=== PATIENT | male | born 1965 | race African-American/Black ===

== ENCOUNTER 2017-12-27 03:54 | Emergency (ER) | payer OTHER ==
[~2017-12-27] VITALS: Ht 177.8 cm; Wt 93.0 kg
--- NOTE | 2017-12-27 04:00 | NUR ---
TO BED 1 A 52 YO MALE PATIENT BIBRA 39 C/O SOB X 48 HRS. HX ASTHMA. PER RA PT 02 80% AT SENIOR CARE, 97% 02 2LPM VIA NC. PATIENT IS AAOX3, NAD NOTED. VSS. SKIN WARM AND DRY. PLACED PATIENT ON CARDIAC AND VS MONITORING. COMFORT MEASURE RENDERED.
--- NOTE | 2017-12-27 04:33 | NUR ---
xr at bedside.
[2017-12-27 04:41] LABS: ABG BASE EXCESS -0.2 mmol/L; ABG OXYGEN SATURATION 91.2 % (92.0-98.5); ABG PO2 61.9 mmHg (75.0-100.0); COHb 0.7 % (0.5-1.5); MetHb 0.4 % (0.0-1.5); O2Hb 90.2 % (94.0-97.0); SITE, ABG Left Radial
[2017-12-27] MEDS ORDERED: ALBUTEROL FS 2.5 MG/0.5 ML VIAL.NEB NEB ONE (05:00)
[2017-12-27] MEDS ORDERED: IPRATROPIUM NEB FS 0.5 MG/2.5 ML AMPUL.NEB NEB ONE ×2 (05:00→08:30)
[2017-12-27] MEDS ORDERED: ALBUTEROL FS 2.5 MG/3 ML VIAL.NEB ONE ×2 (05:25→08:33)
[2017-12-27] MEDS ORDERED: IPRATROPIUM NEB FS 0.5 MG/2.5 ML AMPUL.NEB ONE ×2 (05:25→08:33)
--- NOTE | 2017-12-27 05:33 | NUR ---
ONGOING BREATHING TREATMENT.
[2017-12-27 06:21] LABS: BASOPHILS % (AUTO) 0.4 % (0.0-2.0); EOSINOPHILS # (AUTO) 0.1 /CMM (0.0-0.7); EOSINOPHILS % (AUTO) 1.4 % (0.0-6.0); HEMATOCRIT 52 % (39-51); HEMOGLOBIN 17.4 g/dL (13.5-17.5); LYMPHOCYTES # (AUTO) 1.4 /CMM (0.8-4.8); LYMPHOCYTES % (AUTO) 14.3 % (20.0-44.0); MEAN CORPUSCULAR HEMOGLOBIN 31 PG (26.0-33.0); MEAN CORPUSCULAR HGB CONC 34 g/dl (31.0-36.0); MEAN CORPUSCULAR VOLUME 92 fL (80-96); MONOCYTES # (AUTO) 0.6 /CMM (0.1-1.30); MONOCYTES % (AUTO) 5.9 % (2.0-12.0); NEUTROPHILS # (AUTO) 7.9 /CMM (1.8-8.9); PLATELET COUNT (AUTO) 169 /CMM (150-450); RDW COEFFICIENT OF VARIATION 15.5 (11.5-15.0); RED BLOOD CELL COUNT(AUTO) 5.58 MIL/uL (4.5-6.0); WHITE BLOOD COUNT (AUTO) 10.1 K/uL (4.3-11.0)
[2017-12-27 06:32] LABS: CALCIUM, SERUM 9.5 mg/dL (8.5-10.1); CREATININE 1.7 mg/dL (0.6-1.3); POTASSIUM 4.2 mmol/L (3.5-5.1)
[2017-12-27 06:35] LABS: INR 1.15 (0.87-1.13)
[2017-12-27 06:41] LABS: TROPONIN I 0.034 ng/mL (0.00-0.056)
[2017-12-27 06:46] LABS: ALBUMIN 3.6 g/dL (3.4-5.0); BILIRUBIN,DIRECT 0.8 mg/dL (0.0-0.2); TOTAL PROTEIN, SERUM 7.9 g/dL (6.4-8.2)
--- NOTE | 2017-12-27 07:15 | NUR ---
CALLED RADIOLOGY TO TAKE PT TO CT
[2017-12-27] MEDS ORDERED: IOHEXOL-350 100 ML VIAL IV ONE (07:19)
[2017-12-27] MEDS ORDERED: CT SWABBABLE VALVE TRANS SET 1 EA INFUS.SET MC ONE (07:19)
[2017-12-27] MEDS ORDERED: IV NS 0.9% 500 ML IV ONE (07:20)
--- NOTE | 2017-12-27 07:53 | NUR ---
PATIENT WAS TAKEN TO CT FOR CT ANGIOGRAM
[2017-12-27] MEDS ORDERED: ALBUTEROL FS 2.5 MG/3 ML VIAL.NEB CONTNEB ONE (08:30)
--- NOTE | 2017-12-27 08:31 | NUR ---
RT AWARE OF BREATHING TREATMENT
--- NOTE | 2017-12-27 08:35 | NUR ---
BREATHING TREATMENT ONGOING, PATIENT WAS PLACED ON ROOM AIR AND WAS SATING 93-94%. OTHER VSS.
[2017-12-27 09:08] VITALS: BP 132/62
--- NOTE | 2017-12-27 09:12 | NUR ---
Patient discharged UNDER CUSTODY in stable condition. Written and verbal after care instructions given. Patient verbalizes understanding of instruction.
== END 2017-12-27 09:22 ==
LOC: ER 03:57
DX: J96.01 Acute respiratory failure with hypoxia (principal); J45.909 Unspecified asthma, uncomplicated; I10 Essential (primary) hypertension
CPT/HCPCS: 36415; 36600 ×2; 71045; 71275; 80048; 80076; 82803; 83880; 84484; 85025; 85378; 85730; 87081; 93005; 94640 ×2; 99285; A4606; J7040; Q9967; Z7610

== ENCOUNTER 2019-08-10 20:34 | Emergency (ER) | payer OTHER ==
[~2019-08-10] VITALS: Ht 177.8 cm; Wt 88.5 kg
[2019-08-10 21:17] LABS: BASOPHILS # (AUTO) 0.1 /CMM (0.0-0.2); BASOPHILS % (AUTO) 0.8 % (0.0-2.0); EOSINOPHILS % (AUTO) 1.1 % (0.0-6.0); HEMATOCRIT 50 % (39-51); HEMOGLOBIN 16.8 g/dL (13.5-17.5); LYMPHOCYTES # (AUTO) 1.4 /CMM (0.8-4.8); LYMPHOCYTES % (AUTO) 14.9 % (20.0-44.0); MEAN CORPUSCULAR HGB CONC 33 g/dl (31.0-36.0); MEAN CORPUSCULAR VOLUME 92 fL (80-96); MONOCYTES # (AUTO) 0.9 /CMM (0.1-1.30); MONOCYTES % (AUTO) 9.6 % (2.0-12.0); NEUTROPHILS # (AUTO) 6.7 /CMM (1.8-8.9); NEUTROPHILS % (AUTO) 73.6 % (43.0-81.0); PLATELET COUNT (AUTO) 188 /CMM (150-450); RED BLOOD CELL COUNT(AUTO) 5.45 MIL/uL (4.5-6.0); WHITE BLOOD COUNT (AUTO) 9.1 K/uL (4.3-11.0)
[2019-08-10] MEDS ORDERED: diphenhydrAMINE HCL 50 MG/ML VIAL ONE (21:20)
[2019-08-10 21:27] LABS: CALCIUM, SERUM 8.6 mg/dL (8.5-10.1); CARBON DIOXIDE 20 mmol/L (21-32); CHLORIDE 105 mmol/L (98-107); CREATININE 1.9 mg/dL (0.6-1.3); GLUCOSE 98 mg/dL (74-106); POTASSIUM 4.4 mmol/L (3.5-5.1); SODIUM SERUM 139 mmol/L (136-145); UREA NITROGEN, BLOOD 30 mg/dL (7-18)
[2019-08-10] MEDS ORDERED: diphenhydrAMINE HCL 50 MG/ML VIAL IV ONE (21:30)
--- NOTE | 2019-08-10 21:37 | NUR ---
BIBSELF. TO ER BED 9. AAO4. BREATHING EVEN AND UNLABORED. AMBULATORY. C/O BODY CRAMPING, SOB - FEELING OF AIRWAY CLOSING STARTING THIS EVENING. PT REPORTS THAT HE FEELS SOB IF HIS AIRAWY IS CLOSING. PT REPORTS THAT HE HAVE DX OF PULM HTN. PT REPORTS THAT HIS BODY IS CRAMPING /. MD WAS AT BEDSIDE FOR EVAL. ORDERS RECEIVED, NOTD AND CARRIED OUT. IV LINE OBTIANED ON RA HAND 20G. BLOOD DRAWN AND GIVEN TO PATIENT FINANCIAL SERVICES SPECIALIST TA BEDSIDE. EKG DONE BY EMT. XRAY AT BEDSIDE DONE. PT PLACED ON O2 VIA NC @ 2LPM, SATTING AT 91%. PT VERBALIZES RELIEF AFTER O2 PLACEMENT, O2 SAT NOTED AT 94%. PT ON MONITOR.
[2019-08-10] MEDS ORDERED: ALBUTEROL FS 2.5 MG/0.5 ML VIAL.NEB NEB ONE (22:00)
[2019-08-10] MEDS ORDERED: IPRATROPIUM NEB FS 0.5 MG/2.5 ML AMPUL.NEB NEB ONE (22:00)
[2019-08-10] MEDS ORDERED: IPRATROPIUM NEB FS 0.5 MG/2.5 ML AMPUL.NEB ONE (22:24)
[2019-08-10] MEDS ORDERED: ALBUTEROL FS 2.5 MG/0.5 ML VIAL.NEB ONE (22:24)
--- NOTE | 2019-08-10 23:15 | NUR ---
PT STILL NOTED WITH SOB. SATTING @ 90-91% ON RA. PALCED ON 4LMP VIA NC-SATTING AT 94-95%. AWARE, ORDERS FOR ADDITIONAL LABS RECEIVED
[2019-08-10] MEDS ORDERED: FUROSEMIDE 40 MG/4 ML VIAL ONE (23:54)
[2019-08-11] MEDS ORDERED: FUROSEMIDE 40 MG/4 ML VIAL IV ONE
--- NOTE | 2019-08-11 00:01 | NUR ---
RT AT BEDSIDE FOR ABG
[2019-08-11 00:11] LABS: ABG BASE EXCESS -2.5 mmol/L; ABG OXYGEN SATURATION 93.6 % (92.0-98.5); ABG PCO2 24.4 mmHg (35.0-45.0); ABG PH 7.496 (7.350-7.450); ABG PO2 67.4 mmHg (75.0-100.0); COHb 0.2 % (0.5-1.5); MetHb 0.2 % (0.0-1.5); O2Hb 93.2 % (94.0-97.0); SITE, ABG Left Radial; VENT MODE, BG Nasal Cannula
--- NOTE | 2019-08-11 00:22 | NUR ---
PT ACCEPTED TO [facility] BY DR GALLEGOS, ROOM 124-A. # FOR REPORT [phone]. TRACKING# [id number]
[2019-08-11] MEDS ORDERED: MORPHINE SULFATE INJ 4 MG/ML DISP.SYRIN ONE (01:04)
--- NOTE | 2019-08-11 01:10 | NUR ---
PT COMPLAINED OF BILAT CALF CRAMPING, 08/20. MD NOTIFIED. ORDER RECEIVED TO GIVE MORPHINE 4MG IV. ORDERS NOTED AMD CARRIED OUT
--- NOTE | 2019-08-11 01:18 | NUR ---
URINE OUTPUT 1125ML
--- NOTE | 2019-08-11 01:19 | NUR ---
REPORT GIVEN TO BROOK BHANDARI FOR JUDY AT [facility]. GOING TO RM 124-A
--- NOTE | 2019-08-11 01:19 | NUR ---
AMBULANCE ETA 2:15AM
[2019-08-11] MEDS ORDERED: MORPHINE SULFATE INJ 10 MG/ML DISP.SYRIN IV ONE (01:30)
--- NOTE | 2019-08-11 02:09 | NUR ---
[facility] AT BEDSIDE FOR PT TRANSPORT TO [facility]. PT IS STABLE FOR TRANSPORT. NAD NOTED. REPORT GIVEN
[2019-08-11 02:14] VITALS: BP 149/103
--- NOTE | 2019-08-11 02:18 | NUR ---
ADDITIONAL URINE OUTPUT: 800ML (ON TOP OF EARLIER RECORDED)
== END 2019-08-11 02:19 | disposition short-term general hospital (02) ==
LOC: ER 20:36
DX: R06.02 Shortness of breath (principal); R60.0 Localized edema; I10 Essential (primary) hypertension; J45.909 Unspecified asthma, uncomplicated; F15.10 Other stimulant abuse, uncomplicated; Z60.2 Problems related to living alone
CPT/HCPCS: 36415; 36600; 71045; 80048; 83880; 84484; 85025; 87081; 93005; 94640; 96374; 96375; 99285; J1200; J1940; J2270

== ENCOUNTER 2019-08-23 00:21 | Inpatient (IN) | payer OTHER ==
[~2019-08-23] VITALS: Ht 177.8 cm; Wt 87.1 kg
--- NOTE | 2019-08-23 00:25 | NUR ---
"BIB EMS C/O SOB X2 WEEKS. "I'M HOMELESS, I FEEL WEAK AND WHEN IT'S COLD OUTSIDE IT GET'S WORSE"." PT AAOX4, PT ON MONITOR, PT TO BED 12, NAD NOTED, PENDING MD BROWNE
[2019-08-23 00:53] LABS: BASOPHILS # (AUTO) 0.1 /CMM (0.0-0.2); EOSINOPHILS % (AUTO) 2.3 % (0.0-6.0); HEMATOCRIT 45 % (39-51); HEMOGLOBIN 15.1 g/dL (13.5-17.5); LYMPHOCYTES # (AUTO) 1.2 /CMM (0.8-4.8); LYMPHOCYTES % (AUTO) 18.3 % (20.0-44.0); MEAN CORPUSCULAR HGB CONC 34 g/dl (31.0-36.0); MEAN CORPUSCULAR VOLUME 92 fL (80-96); MONOCYTES # (AUTO) 0.7 /CMM (0.1-1.30); MONOCYTES % (AUTO) 10.3 % (2.0-12.0); NEUTROPHILS # (AUTO) 4.5 /CMM (1.8-8.9); NEUTROPHILS % (AUTO) 68.1 % (43.0-81.0); PLATELET COUNT (AUTO) 189 /CMM (150-450); RED BLOOD CELL COUNT(AUTO) 4.87 MIL/uL (4.5-6.0); WHITE BLOOD COUNT (AUTO) 6.6 K/uL (4.3-11.0)
[2019-08-23 01:01] LABS: CALCIUM, SERUM 8.5 mg/dL (8.5-10.1); CARBON DIOXIDE 19 mmol/L (21-32); CHLORIDE 107 mmol/L (98-107); CREATININE 1.5 mg/dL (0.6-1.3); GLUCOSE 93 mg/dL (74-106); POTASSIUM 4.2 mmol/L (3.5-5.1); SODIUM SERUM 138 mmol/L (136-145); UREA NITROGEN, BLOOD 24 mg/dL (7-18)
[2019-08-23 01:14] LABS: B-TYPE NATRIURETIC PEPTIDE 1868 PG/ML (0-125)
--- NOTE | 2019-08-23 01:32 | NUR ---
TECH AT BESIDE FOR XRAY
[2019-08-23] MEDS ORDERED: FUROSEMIDE 40 MG/4 ML VIAL ONE (02:56)
[2019-08-23] MEDS ORDERED: FUROSEMIDE 40 MG/4 ML VIAL IV ONE (03:00)
[2019-08-23] MEDS ORDERED: ACETAMINOPHEN 325 MG TABLET ONE (03:26)
[2019-08-23] MEDS ORDERED: ACETAMINOPHEN 325 MG TABLET PO ONE (03:30)
[2019-08-23] MEDS ORDERED: FURO-144 PO (04:36)
[2019-08-23] MEDS ORDERED: AMBR10TA5 PO (04:36)
--- NOTE | 2019-08-23 04:55 | NUR ---
TRANSPORTED PT TO FLOOR VIA [facility]S PROTOCOL
[2019-08-23 05:00] VITALS: BP 99/94
[2019-08-23] MEDS ORDERED: ONDANSETRON HCL/PF 4 MG/2 ML VIAL IVP PRN (05:30)
[2019-08-23] MEDS ORDERED: Z GUARD REMEDY 2 OZ OINT TP PRN (05:30)
[2019-08-23] MEDS ORDERED: ACETAMINOPHEN 325 MG TABLET PO PRN (05:30)
[2019-08-23] MEDS ORDERED: BUMETANIDE INJ 6 MG in IV NS 0.9% 36 ML IV ONE (05:30)
--- NOTE | 2019-08-23 06:38 | NUR ---
MS/RN AT 0500 RECEIVED PATIENT FROM [facility] VIA [facility], PATIENT WAS AWAKE, ALERT, ORIENTED, COMFORTABLE, NO C/O PAIN, NO DISTRESS NOTED, ADMISSION DONE PER PROTOCOL, PHOTO ON ABDOMINAL FOLD WAS TAKEN, PATIENT REFUSED FURTHER SKIN ASSESSMENT, PLAN OF CARE DISCUSSED, VERBALIZED UNDERSTANDING AND AGREEMENT. WILL MONITOR.
[2019-08-23 06:42] VITALS: BP 98/74
[2019-08-23] MEDS ORDERED: SPIR25TA6 PO (07:10)
--- NOTE | 2019-08-23 07:30 | NUR ---
RN MS NOTES PT IN BED, ASLEEP, EASY TO AROUSE, ALERT AND ORIENTED, NO COMPLAINT OF PAIN, NOT IN DISTRESS, CALL LIGHT WITHIN REACH, NEEDS ATTENDED, IV SITE AT RIGHT HAND INTACT AND PATENT.
[2019-08-23 08:00] VITALS: BP 110/70
[2019-08-23] MEDS: ASPIRIN EC 81 MG TABLET.DR PO SCH (08:51)
[2019-08-23] MEDS: ENOXAPARIN SODIUM 40 MG/0.4 ML DISP.SYRIN SQ SCH (08:58)
--- NOTE | 2019-08-23 09:26 | NUR ---
SPINE SUPERVISOR NOTES PT SEEN AND EXAMINED BY DR. GERMAN, PLAN OF CARE DISCUSSED WITH PT, VERBALIZED UNDERSTANDING.
[2019-08-23 10:05] LABS: ALBUMIN 3.3 g/dL (3.4-5.0); BILIRUBIN,TOTAL 1.9 mg/dL (0.2-1.0); CALCIUM, SERUM 8.4 mg/dL (8.5-10.1); CREATININE 1.6 mg/dL (0.6-1.3); MAGNESIUM 1.9 mg/dL (1.8-2.4); PHOSPHORUS 3.9 mg/dL (2.5-4.9); POTASSIUM 3.7 mmol/L (3.5-5.1)
[2019-08-23 10:28] LABS: THYROID STIMULATING HORMONE 2.441 uIU/mL (0.358-3.74)
--- NOTE | 2019-08-23 11:04 | NUR ---
RN MS NOTES PT COMPLAINING OF BOTH THIGH CRAMPS, ASSISTED PT TO BED, APPLIED WARM COMPRESSES TO BOTH LEGS, PROVIDED WITH WARM BLANKETS, DR. GERMAN MADE AWARE, NO NEW ORDER GIVEN, PT STATED HE FEELS BETTER, WILL CONTINUE TO MONITOR.
[2019-08-23 16:00] VITALS: BP 120/81
[2019-08-23] MEDS ORDERED: HYDROCODONE/APAP 5/325MG 1 EACH TABLET PO ONE (16:30)
[2019-08-23] MEDS ORDERED: HYDROCODONE/APAP 5/325MG 1 EACH TABLET PO PRN (18:00)
--- NOTE | 2019-08-23 18:12 | NUR ---
RN MS NOTES PT IN BED, RESTING, EARLIER COMPLAINED OF SEVERE BOTH LEGS CRAMPS, WARM COMPRESSES AND WARM BLANKETS PROVIDED, DR. GERMAN INFORMED, ORDERS GIVEN, NOTED AND CARRIED OUT, PT VERBALIZED RELIEF, CALL LIGHT WITHIN REACH, ALL NEEDS ATTENDED.
--- NOTE | 2019-08-23 19:33 | NUR ---
MS RN NOTES RECEIVED ON BED EATING HIS DINNER FOOD,A/O X4,SALINE LOCK RIGHT HAND INTACT AND PATENT.ABLE TO AMBULATE.CALL LIGHT IN REACH,HOMELESS,NEEDS ANTICIPATED.
[2019-08-23 20:00] VITALS: BP 115/70
[2019-08-23 20:00] LABS: APPEARANCE,URINE Clear (CLEAR); BILIRUBIN,URINE Negative (NEGATIVE); BLOOD, URINE Trace-intact Ery/uL (NEGATIVE); COLOR,URINE Yellow (YELLOW); KETONES,URINE Negative (NEGATIVE); LEUKOCYTE ESTERASE ,URINE Negative (NEGATIVE); NITRITE, URINE Negative (NEGATIVE); PH,URINE 5.5 (5.0-8.0); PROTEIN,URINE Negative (NEGATIVE); UGLUCOSE Negative (NEGATIVE); UROBILINOGEN,URINE 0.2 EU/dL (0.2)
[2019-08-23 20:01] LABS: BACTERIA,URINE None seen /HPF (None Seen); RBC,URINE 0-2 /HPF (0-2); SQUAMOUS EPITHELIAL CELL,UR Few /HPF (None Seen); WBC,URINE 0-2 /HPF (0-3)
[2019-08-23 20:32] LABS: CREATININE, URINE < 13.0 MG/DL (30.0-125.0)
[2019-08-23 23:12] LABS: EOSINOPHIL,URINE None Seen
--- NOTE | 2019-08-24 06:09 | NUR ---
MS RN NOTES FAIRLY RESTED,NO EPISODE OF SOB.AMBULATORY.CALL LIGHT IN REACH,NEEDS ATTENDED.WILL ENDORSE TO DAY NURSE FOR JUDY.
[2019-08-24 07:22] LABS: BASOPHILS # (AUTO) 0.1 /CMM (0.0-0.2); BASOPHILS % (AUTO) 0.9 % (0.0-2.0); EOSINOPHILS % (AUTO) 3.2 % (0.0-6.0); HEMATOCRIT 50 % (39-51); HEMOGLOBIN 16.3 g/dL (13.5-17.5); LYMPHOCYTES # (AUTO) 1.4 /CMM (0.8-4.8); LYMPHOCYTES % (AUTO) 24.2 % (20.0-44.0); MEAN CORPUSCULAR HGB CONC 33 g/dl (31.0-36.0); MEAN CORPUSCULAR VOLUME 92 fL (80-96); MONOCYTES # (AUTO) 0.6 /CMM (0.1-1.30); MONOCYTES % (AUTO) 10.4 % (2.0-12.0); NEUTROPHILS # (AUTO) 3.5 /CMM (1.8-8.9); NEUTROPHILS % (AUTO) 61.3 % (43.0-81.0); PLATELET COUNT (AUTO) 203 /CMM (150-450); RED BLOOD CELL COUNT(AUTO) 5.41 MIL/uL (4.5-6.0); WHITE BLOOD COUNT (AUTO) 5.7 K/uL (4.3-11.0)
[2019-08-24 07:35] LABS: CALCIUM, SERUM 8.4 mg/dL (8.5-10.1); CREATININE 1.6 mg/dL (0.6-1.3); MAGNESIUM 1.9 mg/dL (1.8-2.4); PHOSPHORUS 4.2 mg/dL (2.5-4.9); POTASSIUM 3.6 mmol/L (3.5-5.1)
[2019-08-24 08:00] VITALS: BP 107/69
--- NOTE | 2019-08-24 08:07 | NUR ---
RN OPENING NOTES PT RESTING IN BED. NO APPARENT S/S OF PAIN, DISTRESS OR SOB AT THIS TIME. PT HAS RIGHT HAND #18 IV INTACT AND PATENT. SAFETY PRECAUTIONS IN PLACE, BED IN LOWEST LOCKED POSITION, X2 SIDE RAILS UP AND CALL LIGHT WITHIN REACH. WILL CONTINUE TO MONITOR.
[2019-08-24] MEDS: ASPIRIN EC 81 MG TABLET.DR PO SCH (08:45)
[2019-08-24] MEDS: ENOXAPARIN SODIUM 40 MG/0.4 ML DISP.SYRIN SQ SCH (08:46)
--- NOTE | 2019-08-24 11:11 | NUR ---
Social service consult requested by Dr. Irizarry for possible homelessness. Pt. is a 53 year old male who was admitted to [facility] for CHF. SW met with the pt. bedside. Pt. is alert and oriented x 4. Pt. was sitting upright on his bed and writing in a notebook when SW went to assess the pt. Pt. is well groomed, cooperative and very pleasant. Pt. states, he resides [place] his best friend [place] [address] [place] [address], [place] [address]. Pt's emergency contact is his mother Lupe Sanchez . Pt. denies any alcohol, drugs and cigarette use. Pt. will return back to the aforementioned address upon discharge. No social service needs are requested at this time. SW is available, if needed.
[2019-08-24 16:00] VITALS: BP 120/75
--- NOTE | 2019-08-24 19:30 | NUR ---
MS RN OPENING NOTE RECEIVED PATIENT IN BED. A/O X4. TOLERATING ROOM AIR. RESPIRATIONS ARE EVEN AND UNLABORED. NO SOB NOTED. DENIES PAIN AT THIS TIME. IV ACCESS IN RIGHT HAND #18 PATENT AND SALINE LOCKED. BED IS LOW AND LOCKED, SIDE RAILS UP X2, HOB ELEVATED 45 DEGREES. CALL LIGHT WITHIN REACH. WILL CONTINUE TO MONITOR.
--- NOTE | 2019-08-24 19:35 | NUR ---
RN CLOSING NOTES PT RESTING IN BED. NO APPARENT S/S OF PAIN, DISTRESS OR SOB DURING. PT HAS RIGHT HAND #18 IV INTACT AND PATENT. SAFETY PRECAUTIONS IN PLACE, BED IN LOWEST LOCKED POSITION, X2 SIDE RAILS UP AND CALL LIGHT WITHIN REACH. WILL ENDORSE TO ASSEMBLER WIRE MESH GATE NURSE FOR CONTINUITY OF CARE.
[2019-08-24 20:00] VITALS: BP 124/79
--- NOTE | 2019-08-25 06:45 | NUR ---
MS RN CLOSING NOTE PATIENT IN BED. A/O X4. REMAINS TOLERATING ROOM AIR. RESPIRATIONS ARE EVEN AND UNLABORED. NO SOB NOTED THROUGHOUT SHIFT. NO C/O PAIN. IV ACCESS REMIANS IN RIGHT HAND #18 PATENT AND SALINE LOCKED. BED IS LOW AND LOCKED, SIDE RAILS UP X2, HOB ELEVATED 45 DEGREES. CALL LIGHT WITHIN REACH. WILL ENDORSE TO NEXT SHIFT FOR JUDY.
[2019-08-25 07:11] LABS: BASOPHILS % (AUTO) 0.8 % (0.0-2.0); EOSINOPHILS % (AUTO) 3.4 % (0.0-6.0); HEMATOCRIT 49 % (39-51); HEMOGLOBIN 16.1 g/dL (13.5-17.5); LYMPHOCYTES # (AUTO) 1.4 /CMM (0.8-4.8); LYMPHOCYTES % (AUTO) 26.4 % (20.0-44.0); MEAN CORPUSCULAR HGB CONC 33 g/dl (31.0-36.0); MEAN CORPUSCULAR VOLUME 92 fL (80-96); MONOCYTES # (AUTO) 0.6 /CMM (0.1-1.30); MONOCYTES % (AUTO) 12.2 % (2.0-12.0); NEUTROPHILS % (AUTO) 57.2 % (43.0-81.0); PLATELET COUNT (AUTO) 209 /CMM (150-450); RED BLOOD CELL COUNT(AUTO) 5.38 MIL/uL (4.5-6.0); WHITE BLOOD COUNT (AUTO) 5.3 K/uL (4.3-11.0)
[2019-08-25 07:21] LABS: CALCIUM, SERUM 8.6 mg/dL (8.5-10.1); CREATININE 1.4 mg/dL (0.6-1.3); POTASSIUM 4.1 mmol/L (3.5-5.1)
[2019-08-25 08:00] VITALS: BP 127/90
[2019-08-25] MEDS: ENOXAPARIN SODIUM 40 MG/0.4 ML DISP.SYRIN SQ SCH (08:33)
[2019-08-25] MEDS: ASPIRIN EC 81 MG TABLET.DR PO SCH (08:34)
--- NOTE | 2019-08-25 11:26 | NUR ---
WOUND CARE CONSULT: PT REFUSED SKIN ASSESSMENT AND STATED THAT HE SEES HIS OWN DOCTOR FOR ECZEMA. PT IS INDEPENDENT WITH BED MOBILITY AND CONTINENT WITH CURRENT EDWARD SCORE OF 21. WILL SEE PRN.
[2019-08-25 16:00] VITALS: BP 138/85
--- NOTE | 2019-08-25 18:22 | NUR ---
FRUIT GRADER OPERATOR NOTES PT STABLE AT DISCHARGE. ALL DISCHARGE PAPERWORK, DISCUSSED, SIGNED, COPIED, AND GIVEN TO THE PATIENT. ALL PATIENT BELONGINGS ACCOUNTED FOR. PT REFUSED PICTURES OF SKIN AT DISCHARGE. IV AND ID BAND REMOVED. PT ESCORTED OFF OF UNIT BY CAROL WILSON.
== END 2019-08-25 17:50 | disposition home or self-care (01) | DRG 207 ==
LOC: ER 00:25 → TELE 04:18 → MED 09:55
PROVIDERS: ADMIT Family Medicine; ATTEND Hospitalist
DX: I27.20 Pulmonary hypertension, unspecified (principal); N17.0 Acute kidney failure with tubular necrosis; I13.0 Hypertensive heart and chronic kidney disease with heart failure and stage 1 through stage 4 chronic kidney disease, or unspecified chronic kidney disease; I95.9 Hypotension, unspecified; I50.9 Heart failure, unspecified; N18.9 Chronic kidney disease, unspecified; Z59.0 Homelessness; J45.909 Unspecified asthma, uncomplicated; R07.9 Chest pain, unspecified
CPT/HCPCS: 36415; 71045-TC; 76770-TC; 80048-TC; 80053-TC; 80061-TC; 81000-TC; 82570-TC; 83735-TC; 83880; 84100-TC; 84439-TC; 84443-TC; 84484-TC; 85025-TC; 87081-TC; 93307-TC; A4216; G0378; J1650; J1940; J3490; J7050

== ENCOUNTER 2020-09-25 21:46 | Inpatient (IN) | payer OTHER ==
[~2020-09-25] VITALS: Ht 177.8 cm; Wt 90.7 kg
[~2020-09-25 21:46] MED LIST: AMBR10TA5 PO; FURO-144 PO; SPIR25TA6 PO
--- NOTE | 2020-09-25 21:48 | NUR ---
PT CAME TO THE ER C/O ER C/O SOB X 2 DAYS. WORSE TODAY. PT SATTING IN THE LOW 90'S ON RA. PT PLACED ON 5 LPM VIA N/C SATTING 96%. PT NOTED TACHYPNEIC. PT AAOX4, NO ACUTE DISTRESS NOTED. PT CONNECTED TO THE DIRECTOR OF HOME CARE HOSPICE AND POX.
--- NOTE | 2020-09-25 22:07 | NUR ---
TOOL AND DIE REPAIRER AT BEDSIDE FOR BLOOD DRAW
--- NOTE | 2020-09-25 22:14 | NUR ---
CALLED LAB FOR COVID SWAB
--- NOTE | 2020-09-25 22:23 | NUR ---
COVID SWAB SENT TO LAB
[2020-09-25 22:46] LABS: BASOPHILS % (AUTO) 0.6 % (0.0-2.0); HEMATOCRIT 53 % (39-51); HEMOGLOBIN 17.6 g/dL (13.5-17.5); LYMPHOCYTES # (AUTO) 1.7 /CMM (0.8-4.8); LYMPHOCYTES % (AUTO) 24.9 % (20.0-44.0); MEAN CORPUSCULAR HGB CONC 33 g/dl (31.0-36.0); MEAN CORPUSCULAR VOLUME 93 fL (80-96); MONOCYTES # (AUTO) 0.5 /CMM (0.1-1.30); MONOCYTES % (AUTO) 7.9 % (2.0-12.0); NEUTROPHILS # (AUTO) 4.4 /CMM (1.8-8.9); NEUTROPHILS % (AUTO) 64.6 % (43.0-81.0); PLATELET COUNT (AUTO) 174 /CMM (150-450); RED BLOOD CELL COUNT(AUTO) 5.75 MIL/uL (4.5-6.0); WHITE BLOOD COUNT (AUTO) 6.8 K/uL (4.3-11.0)
[2020-09-25 22:58] LABS: CALCIUM, SERUM 9.3 mg/dL (8.5-10.1); CARBON DIOXIDE 22 mmol/L (21-32); CHLORIDE 105 mmol/L (98-107); CREATININE 1.5 mg/dL (0.6-1.3); GLUCOSE 62 mg/dL (74-106); POTASSIUM 4.1 mmol/L (3.5-5.1); SODIUM SERUM 139 mmol/L (136-145); UREA NITROGEN, BLOOD 21 mg/dL (7-18)
[2020-09-25 23:10] LABS: ALANINE AMINOTRANSFERASE 91 U/L (12-78); ALBUMIN 4.1 g/dL (3.4-5.0); ALKALINE PHOSPHATASE 145 U/L (46-116); ASPARTATE AMINOTRANSFERASE 57 U/L (15-37); B-TYPE NATRIURETIC PEPTIDE 6749 PG/ML (0-125); BILIRUBIN,DIRECT 0.3 mg/dL (0.0-0.2); BILIRUBIN,TOTAL 1.2 mg/dL (0.2-1.0); TOTAL PROTEIN, SERUM 8.2 g/dL (6.4-8.2)
--- NOTE | 2020-09-25 23:17 | NUR ---
RT AT BEDSIDE FOR ABG DRAW
--- NOTE | 2020-09-25 23:50 | NUR ---
Pt refusing ABG due to pain. RN and ER MD aware.
[2020-09-26] MEDS ORDERED: ALBUTEROL FS 2.5 MG/3 ML VIAL.NEB NEB ONE
[2020-09-26] MEDS ORDERED: FUROSEMIDE 40 MG/4 ML VIAL ONE
[2020-09-26 00:01] LABS: D-DIMER 1.05 mg/L(FEU (0.17-0.50)
[2020-09-26] MEDS ORDERED: ALBUTEROL FS 2.5 MG/3 ML VIAL.NEB ONE (00:03)
--- NOTE | 2020-09-26 00:37 | NUR ---
REPORT GIVEN TO BROOK WATTERS FOR JUDY
--- NOTE | 2020-09-26 01:07 | NUR ---
TELE 108
--- NOTE | 2020-09-26 01:09 | NUR ---
NURSE WILL CALL BACK FOR REPORT
[2020-09-26] MEDS ORDERED: ONDANSETRON HCL/PF 4 MG/2 ML VIAL IVP PRN (01:30)
[2020-09-26] MEDS ORDERED: ACETAMINOPHEN 325 MG TABLET PO PRN (01:30)
[2020-09-26] MEDS ORDERED: ZOLPIDEM TARTRATE 5 MG TABLET PO PRN (01:30)
[2020-09-26] MEDS ORDERED: hydrALAZINE HCL 25 MG TABLET PO SCH (01:30)
[2020-09-26] MEDS ORDERED: MAGNESIUM HYDROXIDE 30 ML UDC PO PRN (01:30)
[2020-09-26] MEDS ORDERED: Z GUARD REMEDY 2 OZ OINT TP PRN (01:30)
[2020-09-26] MEDS ORDERED: HYDROCODONE/APAP 5/325MG TABLET PO PRN (01:30)
[2020-09-26] MEDS ORDERED: MAG HYDROX/AL HYDROX/SIMETH 30 ML UDC PO PRN (01:30)
[2020-09-26 02:52] VITALS: BP 143/62
[2020-09-26 04:00] VITALS: BP 144/94
--- NOTE | 2020-09-26 07:00 | NUR ---
RN notes Admitted a 54 year old from ER via stretcher with admitting diagnosis of CHF exacerbation. In no apparent distress, on 10 lpm via regular mask with O2sat of 96 to 100%. Alert and oriented x 4, verbally able to communicate needs. No complaint of pain or discomfort. Vital signs wnl. Needs attended. Kept clean and dry. Will endorse to next shift for continuity of care.
[2020-09-26 08:00] VITALS: BP 133/78
[2020-09-26] MEDS ORDERED: AMBRISENTAN 10 MG PO SCH (09:00)
[2020-09-26] MEDS: SPIRONOLACTONE 25 MG TABLET PO SCH (09:30)
[2020-09-26] MEDS: FUROSEMIDE 40 MG TABLET PO SCH (09:30)
[2020-09-26] MEDS ORDERED: FUROSEMIDE 40 MG/4 ML VIAL IV ONE ×2 (11:00)
[2020-09-26 12:00] VITALS: BP 129/78
[2020-09-26 12:39] LABS: CREATININE, URINE 59.4 MG/DL (30.0-125.0); URINE TOTAL PROTEIN 34.9 mg/dL (0-11.9)
[2020-09-26 13:37] LABS: BILIRUBIN,URINE NEGATIVE (NEGATIVE); BLOOD, URINE TRACE Ery/uL (NEGATIVE); COLOR,URINE YELLOW (YELLOW); LEUKOCYTE ESTERASE ,URINE NEGATIVE (NEGATIVE); NITRITE, URINE NEGATIVE (NEGATIVE); PH,URINE 5.5 (5.0-8.0); PROTEIN,URINE TRACE mg/dl (NEGATIVE); UGLUCOSE NEGATIVE (NEGATIVE); UROBILINOGEN,URINE 0.2 EU/dL (0.2)
[2020-09-26 14:22] LABS: RBC,URINE 0-2 /HPF (0-2); WBC,URINE 0-2 /HPF (0-3)
[2020-09-26 14:23] LABS: BACTERIA,URINE Rare /HPF (None Seen); SQUAMOUS EPITHELIAL CELL,UR Rare /HPF (None Seen)
[2020-09-26 15:15] LABS: EOSINOPHIL,URINE None Seen
[2020-09-26 16:00] VITALS: BP 129/78
--- NOTE | 2020-09-26 17:38 | NUR ---
rn notes patient remains on 6 LPM mask, saturating in the low to mid 90's with this setting. a/o x4, denies pain at this time. negative for DVT at this time post duplex venous lower test. Patient to provide ambirsentan, medication for pulmonary hypertension. Fax sent to [facility] requesting for paperwork when patient was admitted there. Bed at the lowest setting, call light within reach, side rails up x2.
--- NOTE | 2020-09-26 19:20 | NUR ---
RN OPENING NOTE, PATIENT IN BED WATCHING FOOTBALL GAME, AWAKE A/O X4 , BREATHING EVEN AN UNLABORED, NO SOB OR ANY RESPIRATORY DISTRESS AT THIS TIME, DENIES ANY PAIN OR DISCOMFORT, ON NC AT 5LPM WITH SATURATION 92-95% AT THIS TIME, NSR IN TELE MONITOR WITH HR 60S AT THIS TIME, SIDE RAILS UP X2, ALL SAFETY MEASURES IMPLEMENTED, CALL LIGHT WITHIN REACH, WILL CONTINUE TO MONITOR CLOSELY.
[2020-09-26 20:00] VITALS: BP 133/94
[2020-09-27] VITALS: BP 136/89
[2020-09-27 04:00] VITALS: BP 154/95
[2020-09-27 06:00] LABS: BASOPHILS # (AUTO) 0.1 /CMM (0.0-0.2); BASOPHILS % (AUTO) 0.8 % (0.0-2.0); EOSINOPHILS % (AUTO) 2.3 % (0.0-6.0); HEMATOCRIT 52 % (39-51); HEMOGLOBIN 17.3 g/dL (13.5-17.5); LYMPHOCYTES # (AUTO) 1.4 /CMM (0.8-4.8); MEAN CORPUSCULAR HGB CONC 33 g/dl (31.0-36.0); MEAN CORPUSCULAR VOLUME 92 fL (80-96); MONOCYTES # (AUTO) 0.6 /CMM (0.1-1.30); MONOCYTES % (AUTO) 7.4 % (2.0-12.0); NEUTROPHILS # (AUTO) 5.6 /CMM (1.8-8.9); NEUTROPHILS % (AUTO) 71.5 % (43.0-81.0); PLATELET COUNT (AUTO) 173 /CMM (150-450); RED BLOOD CELL COUNT(AUTO) 5.66 MIL/uL (4.5-6.0); WHITE BLOOD COUNT (AUTO) 7.9 K/uL (4.3-11.0)
[2020-09-27 06:19] LABS: ALBUMIN 3.3 g/dL (3.4-5.0); BILIRUBIN,TOTAL 1.2 mg/dL (0.2-1.0); CALCIUM, SERUM 8.8 mg/dL (8.5-10.1); CREATININE 1.5 mg/dL (0.6-1.3); MAGNESIUM 2.1 mg/dL (1.8-2.4); PHOSPHORUS 4.5 mg/dL (2.5-4.9); POTASSIUM 3.9 mmol/L (3.5-5.1); TOTAL PROTEIN, SERUM 7.1 g/dL (6.4-8.2)
--- NOTE | 2020-09-27 06:45 | NUR ---
RN CLOSING NOTES, PATIENT IN BED SLEEPING AT THIS TIME, BREATHING EVEN AN UNLABORED, NO SOB OR ANY RESPIRATORY DISTRESS AT THIS TIME, ON NC AT 5LPM WITH SATURATION >94% THROUGHOUT THE NIGHT, CONTINUE NSR IN TELE MONITOR WITH HR 80S AT THIS TIME, SIDE RAILS UP X2, ALL SAFETY MEASURES IMPLEMENTED, CALL LIGHT WITHIN REACH, WILL ENDORSE CONTINUITY OF CARE TO ONCOMING NURSE.
--- NOTE | 2020-09-27 07:30 | NUR ---
RN OPENING NOTE TELE PT IN BED, AWAKE, A/Ox4 BREATHING RA SPO2 98%, NO SIGNS OF RESP DISTRESS OR SOB. PT DENIES ANY PAIN OR DISCOMFORT. PT IN NSR IN THE 70s. PT HAS A LT HAND G22 HEP LOCKED. PT ON STRICT I/O's AND FLUID RESTRICTION. SAFETY PRECAUTIONS IN PLACE- BED LOCKED AND IN LOWEST POSITION, CALL LIGHT WITHIN REACH, SR UP x2. WILL CONTINUE TO MONITOR.
[2020-09-27 08:00] VITALS: BP 140/99
[2020-09-27] MEDS: FUROSEMIDE 40 MG TABLET PO SCH (09:06)
[2020-09-27] MEDS: SPIRONOLACTONE 25 MG TABLET PO SCH (09:06)
[2020-09-27 11:35] LABS: ABG BASE EXCESS -2.9 mmol/L; ABG OXYGEN SATURATION 94.4 % (92.0-98.5); ABG PCO2 31.1 mmHg (35.0-45.0); ABG PH 7.428 (7.350-7.450); ABG PO2 73.4 mmHg (75.0-100.0); AaDO2 89.5 mmHg; COHb 0.2 % (0.5-1.5); MetHb 0.3 % (0.0-1.5); O2Hb 93.9 % (94.0-97.0); SITE, ABG Right Radial
[2020-09-27 12:00] VITALS: BP 140/98
[2020-09-27] MEDS ORDERED: HOME MED MISCELLANEOUS XX SCH (12:00)
[2020-09-27] MEDS ORDERED: SILDENAFIL CITRATE 20 MG TABLET PO SCH (13:18)
[2020-09-27] MEDS ORDERED: SILD20TA PO (15:17)
[2020-09-27 16:00] VITALS: BP 115/78
[2020-09-27] MEDS ORDERED: INFLUENZA VACCINE 2020-21 0.5 ML DISP.SYRIN IM ONE (16:00)
--- NOTE | 2020-09-27 17:08 | NUR ---
RN NOTES VACCINE ADMINISTERED EARLIER, FORGOT TO SCAN. CHARGE NURSE AWARE AND PHARMACY NOTIFIED AND AWARE. UNABLE TO DO INVENTORY IN OMNICE
--- NOTE | 2020-09-27 17:53 | NUR ---
SURGICAL NURSE NOTES PATIENT DISCHARGED TO HOME TODAY PER MD IN STABLE CONDITION, PROVIDED DC INSTRUCTIONS, HEALTH TEACHINGS AND MED RECON LIST/PRESCRIPTION. PATIENT TO FOLLOW UP WITH PCP IN 1-2 WEEKS AND WILL MAKE OWN APPOINTMENT. IV ACCESS TO LEFT HAND REMOVED,CATHETER TIP COMPLETE,APPLIED PRESSURE, NO BLEEDING DRESSING IN PLACE. ALL BELONGINGS CHECKED AND RETURNED. ALL PAPER WORKS SIGNED. PATIENT PROVIDED WITH TAP CARD AND WILL TAKE BUS GOING HOME. Addendum: 09/27/20 at 1812 by JOSY TORRES RN ADDENDUM: PATIENT ACCOMPANIED TO LOBBY. PATIENT LEFT AND WILL TAKE BUS TO GO HOME.
== END 2020-09-27 18:06 | disposition home or self-care (01) | DRG 207 ==
LOC: ER 21:47 → TELE 09-26 00:29 → TELE1 09-26 01:08
PROVIDERS: ADMIT Nurse Practitioner Acute Care; ATTEND Nurse Practitioner Acute Care
DX: I27.20 Pulmonary hypertension, unspecified (principal); J96.01 Acute respiratory failure with hypoxia; N17.0 Acute kidney failure with tubular necrosis; J45.909 Unspecified asthma, uncomplicated; E87.2 Acidosis; Z79.899 Other long term (current) drug therapy; E80.6 Other disorders of bilirubin metabolism; N18.9 Chronic kidney disease, unspecified; I13.0 Hypertensive heart and chronic kidney disease with heart failure and stage 1 through stage 4 chronic kidney disease, or unspecified chronic kidney disease; Z91.14 Patient's other noncompliance with medication regimen; Z82.49 Family history of ischemic heart disease and other diseases of the circulatory system; K76.0 Fatty (change of) liver, not elsewhere classified; D75.1 Secondary polycythemia
CPT/HCPCS: 36415; 36600; 71045-TC; 76700-TC; 80048-TC; 80053-TC; 80061-TC; 80076-TC; 81001; 82550-TC; 82570-TC; 83605-TC; 83735-TC; 83880; 83970; 84100-TC; 84155; 84155-TC; 84165; 84300-TC; 84484-TC; 85025-TC; 85378-TC; 85610-TC; 85730-TC; 87040-TC; 87081-TC; 93307-TC; 93970-TC; C9803; G0378; J1940; Q2036

== ENCOUNTER 2021-10-10 08:43 | Emergency (ER) | payer OTHER ==
[~2021-10-10] VITALS: Ht 177.8 cm; Wt 93.0 kg
[~2021-10-10 08:43] MED LIST changes: +SILD20TA PO
--- NOTE | 2021-10-10 08:56 | NUR ---
The patient bibs for c/o sob x 1 day, off medications x 12 days 94% on room air. Respiration regular. Denies pain. Attached to the monitor. Warm blanket provided for comfort. Will continue to monitor the patient.
--- NOTE | 2021-10-10 09:22 | NUR ---
X-RAY TECH AT THE BEDSIDE
--- NOTE | 2021-10-10 09:29 | NUR ---
PHLEBATOMIST AT THE BEDSIDE
[2021-10-10 09:39] LABS: BASOPHILS # (AUTO) 0.1 K/uL (0.0-0.2); BASOPHILS % (AUTO) 1.9 % (0.0-2.0); EOSINOPHILS % (AUTO) 3.2 % (0.0-6.0); HEMATOCRIT 42 % (39-51); HEMOGLOBIN 13.9 g/dL (13.5-17.5); LYMPHOCYTES % (AUTO) 17.5 % (20.0-44.0); MEAN CORPUSCULAR HGB CONC 33 g/dl (31.0-36.0); MEAN CORPUSCULAR VOLUME 92 fL (80-96); MONOCYTES # (AUTO) 0.5 K/uL (0.1-1.30); MONOCYTES % (AUTO) 8.2 % (2.0-12.0); NEUTROPHILS # (AUTO) 4.1 K/uL (1.8-8.9); NEUTROPHILS % (AUTO) 69.2 % (43.0-81.0); PLATELET COUNT (AUTO) 202 K/uL (150-450); RED BLOOD CELL COUNT(AUTO) 4.62 MIL/uL (4.5-6.0); WHITE BLOOD COUNT (AUTO) 5.9 K/uL (4.3-11.0)
[2021-10-10 09:46] LABS: CALCIUM, SERUM 8.3 mg/dL (8.5-10.1); CARBON DIOXIDE 21 mmol/L (21-32); CHLORIDE 111 mmol/L (98-107); CREATININE 1.6 mg/dL (0.6-1.3); GLUCOSE 103 mg/dL (74-106); POTASSIUM 4.4 mmol/L (3.5-5.1); SODIUM SERUM 142 mmol/L (136-145); UREA NITROGEN, BLOOD 24 mg/dL (7-18)
[2021-10-10 09:58] LABS: ALANINE AMINOTRANSFERASE 53 U/L (12-78); ALBUMIN 2.9 g/dL (3.4-5.0); ALKALINE PHOSPHATASE 109 U/L (46-116); ASPARTATE AMINOTRANSFERASE 24 U/L (15-37); BILIRUBIN,DIRECT 0.2 mg/dL (0.0-0.2); BILIRUBIN,TOTAL 0.8 mg/dL (0.2-1.0); TOTAL PROTEIN, SERUM 6.2 g/dL (6.4-8.2)
[2021-10-10] MEDS ORDERED: FUROSEMIDE 40 MG/4 ML VIAL ONE (10:26)
[2021-10-10] MEDS ORDERED: FUROSEMIDE 40 MG/4 ML VIAL IV ONE (10:30)
[2021-10-10] MEDS ORDERED: SPIR25TA6 PO (13:11)
[2021-10-10] MEDS ORDERED: FURO-144 PO (13:11)
--- NOTE | 2021-10-10 13:15 | NUR ---
IV removed. Catheter intact and site benign. Pressure and 4x4 applied to site. No bleeding noted.Patient discharged to home in stable condition. Written and verbal after care instructions given. Patient verbalizes understanding of instruction.
[2021-10-10 13:16] VITALS: BP 109/76
== END 2021-10-10 13:16 | disposition home or self-care (01) ==
LOC: ER 08:43
DX: R06.09 Other forms of dyspnea (principal); I27.20 Pulmonary hypertension, unspecified; Z59.00 Homelessness unspecified; Z79.899 Other long term (current) drug therapy
CPT/HCPCS: 36415; 71045; 80048; 80076; 83880; 84484; 85025; 93005; 96374; 99285; J1940

== ENCOUNTER 2024-02-27 22:50 | Inpatient (IN) | payer OTHER ==
[~2024-02-27] VITALS: Ht 177.8 cm; Wt 86.8 kg
[2024-02-27 23:45] LABS: BASOPHILS # (AUTO) 0.1 K/uL (0.0-0.2); BASOPHILS % (AUTO) 0.9 % (0.0-2.0); EOSINOPHILS % (AUTO) 0.4 % (0.0-6.0); HEMATOCRIT 34 % (39-51); HEMOGLOBIN 10.3 g/dL (13.5-17.5); LYMPHOCYTES # (AUTO) 1.9 K/uL (0.8-4.8); LYMPHOCYTES % (AUTO) 23.8 % (20.0-44.0); MEAN CORPUSCULAR HEMOGLOBIN 22 PG (26.0-33.0); MEAN CORPUSCULAR HGB CONC 31 g/dl (31.0-36.0); MEAN CORPUSCULAR VOLUME 73 fL (80-96); MONOCYTES # (AUTO) 0.5 K/uL (0.1-1.30); MONOCYTES % (AUTO) 5.6 % (2.0-12.0); NEUTROPHILS # (AUTO) 5.6 K/uL (1.8-8.9); NEUTROPHILS % (AUTO) 69.3 % (43.0-81.0); PLATELET COUNT (AUTO) 219 K/uL (150-450); RED BLOOD CELL COUNT(AUTO) 4.58 MIL/uL (4.5-6.0); RED CELL DISTRIBUTION WIDTH 28.3 % (11.5-15.0); WHITE BLOOD COUNT (AUTO) 8.1 K/uL (4.3-11.0)
[2024-02-28 00:09] LABS: INR 1.67 (0.91-1.10); PARTIAL THROMBOPLASTIN TIME 31.3 SEC (24.3-34.3); PROTHROMBIN TIME 17.1 SECS (9.2-11.1)
[2024-02-28 01:25] LABS: CALCIUM, SERUM 8.6 mg/dL (8.5-10.1); CARBON DIOXIDE 23 mmol/L (21-32); CHLORIDE 97 mmol/L (98-107); CREATININE 2.6 mg/dL (0.6-1.3); GLUCOSE 75 mg/dL (74-106); POTASSIUM 3.2 mmol/L (3.5-5.1); SODIUM SERUM 133 mmol/L (136-145); UREA NITROGEN, BLOOD 43 mg/dL (7-18)
[2024-02-28 01:52] LABS: ALANINE AMINOTRANSFERASE 27 U/L (12-78); ALBUMIN 3.5 g/dL (3.4-5.0); ALKALINE PHOSPHATASE 152 U/L (46-116); ASPARTATE AMINOTRANSFERASE 26 U/L (15-37); BILIRUBIN,TOTAL 3.3 mg/dL (0.2-1.0); NT-PRO BNP 10733 pg/mL (0-125); TOTAL PROTEIN, SERUM 8.3 g/dL (6.4-8.2)
[2024-02-28] MEDS: FUROSEMIDE 20 MG/2 ML VIAL IV ONE (02:41)
[2024-02-28] MEDS ORDERED: FUROSEMIDE 20 MG/2 ML VIAL ONE (02:41)
[2024-02-28 03:00] LABS: ANISOCYTOSIS 1+; PLATELET ESTIMATE ADEQUATE
[2024-02-28] MEDS ORDERED: TADA5TAB2 PO (04:05)
[2024-02-28] MEDS ORDERED: ONDANSETRON HCL/PF 4 MG/2 ML VIAL IVP PRN (05:30)
[2024-02-28] MEDS ORDERED: ONDANSETRON HCL/PF 4 MG/2 ML VIAL IV PRN (05:30)
[2024-02-28] MEDS ORDERED: ACETAMINOPHEN 325 MG TABLET PO PRN ×2 (05:30)
[2024-02-28] MEDS ORDERED: HYDROCODONE/APAP 5/325MG TABLET PO PRN (05:30)
[2024-02-28] MEDS ORDERED: HYDROCODONE/APAP 10/325MG TABLET PO PRN (05:30)
[2024-02-28] MEDS: POTASSIUM CHLORIDE 20 MEQ TAB.PRT.SR PO ONE ×2 (06:18→09:57)
[2024-02-28 07:04] VITALS: BP 126/65; TEMP 97.9; O2SAT 95
[2024-02-28 07:41] LABS: BASOPHILS # (AUTO) 0.1 K/uL (0.0-0.2); BASOPHILS % (AUTO) 0.9 % (0.0-2.0); EOSINOPHILS # (AUTO) 0.1 K/uL (0.0-0.7); EOSINOPHILS % (AUTO) 1.4 % (0.0-6.0); HEMATOCRIT 33 % (39-51); HEMOGLOBIN 10.4 g/dL (13.5-17.5); LYMPHOCYTES # (AUTO) 0.8 K/uL (0.8-4.8); LYMPHOCYTES % (AUTO) 11.9 % (20.0-44.0); MEAN CORPUSCULAR HEMOGLOBIN 23 PG (26.0-33.0); MEAN CORPUSCULAR HGB CONC 31 g/dl (31.0-36.0); MEAN CORPUSCULAR VOLUME 73 fL (80-96); MONOCYTES # (AUTO) 0.9 K/uL (0.1-1.30); MONOCYTES % (AUTO) 13.2 % (2.0-12.0); NEUTROPHILS # (AUTO) 5.2 K/uL (1.8-8.9); NEUTROPHILS % (AUTO) 72.6 % (43.0-81.0); PLATELET COUNT (AUTO) 188 K/uL (150-450); RED BLOOD CELL COUNT(AUTO) 4.56 MIL/uL (4.5-6.0); RED CELL DISTRIBUTION WIDTH 27.7 % (11.5-15.0); WHITE BLOOD COUNT (AUTO) 7.1 K/uL (4.3-11.0)
[2024-02-28 08:00] LABS: CALCIUM, SERUM 8.3 mg/dL (8.5-10.1); CREATININE 2.7 mg/dL (0.6-1.3); POTASSIUM 3.2 mmol/L (3.5-5.1)
[2024-02-28] MEDS ORDERED: SPIRONOLACTONE 25 MG TABLET PO SCH (09:00)
[2024-02-28] MEDS: METOLAZONE 2.5 MG TABLET PO SCH (09:57)
[2024-02-28] MEDS: AZITHROMYCIN 250 MG TABLET PO SCH (09:57)
[2024-02-28] MEDS: FUROSEMIDE 40 MG/4 ML VIAL IV SCH (17:34)
[2024-02-28] MEDS: HEPARIN SODIUM, PORCINE 5000 UNITS/1 ML VIAL SQ SCH (21:00)
[2024-02-28 21:11] VITALS: BP 126/65; TEMP 97.9; O2SAT 95
[2024-02-29] VITALS: BP 108/74; TEMP 97.5; O2SAT 92
[2024-02-29 06:10] VITALS: O2SAT 92
[2024-02-29 07:23] LABS: BASOPHILS % (AUTO) 0.8 % (0.0-2.0); EOSINOPHILS # (AUTO) 0.1 K/uL (0.0-0.7); EOSINOPHILS % (AUTO) 2.3 % (0.0-6.0); HEMATOCRIT 34 % (39-51); HEMOGLOBIN 10.4 g/dL (13.5-17.5); LYMPHOCYTES # (AUTO) 1.2 K/uL (0.8-4.8); LYMPHOCYTES % (AUTO) 26.6 % (20.0-44.0); MEAN CORPUSCULAR HEMOGLOBIN 23 PG (26.0-33.0); MEAN CORPUSCULAR HGB CONC 31 g/dl (31.0-36.0); MEAN CORPUSCULAR VOLUME 74 fL (80-96); MONOCYTES # (AUTO) 0.5 K/uL (0.1-1.30); MONOCYTES % (AUTO) 11.6 % (2.0-12.0); NEUTROPHILS # (AUTO) 2.7 K/uL (1.8-8.9); NEUTROPHILS % (AUTO) 58.7 % (43.0-81.0); PLATELET COUNT (AUTO) 184 K/uL (150-450); RED BLOOD CELL COUNT(AUTO) 4.57 MIL/uL (4.5-6.0); RED CELL DISTRIBUTION WIDTH 27.8 % (11.5-15.0); WHITE BLOOD COUNT (AUTO) 4.5 K/uL (4.3-11.0)
[2024-02-29 08:05] LABS: CALCIUM, SERUM 8.3 mg/dL (8.5-10.1); CREATININE 1.9 mg/dL (0.6-1.3); PHOSPHORUS 3.7 mg/dL (2.5-4.9); POTASSIUM 2.9 mmol/L (3.5-5.1)
[2024-02-29] MEDS: POTASSIUM CHLORIDE 20 MEQ TAB.PRT.SR PO ONE (09:46)
[2024-02-29 10:10] LABS: NEUTROPHILS % (MANUAL) 68 (42-76)
[2024-02-29 10:11] LABS: ANISOCYTOSIS 1+; EOSINOPHILS % (MANUAL) 2 % (0-4); LYMPHOCYTES % (MANUAL) 17 % (16-48); METAMYELOCYTES % 3 % (0-0); MONOCYTES % (MANUAL) 10 % (0-11.0); PLATELET ESTIMATE ADEQUATE
[2024-02-29] MEDS: CEFTRIAXONE 1 G in IV D5W 50 ML IV SCH (10:12)
[2024-02-29 11:09] LABS: THYROID STIMULATING HORMONE 2.352 uIU/mL (0.358-3.74)
[2024-02-29] MEDS ORDERED: TADA20TA43 PO (17:53)
[2024-02-29] MEDS ORDERED: ELIQUIS PO (17:53)
[2024-02-29 20:00] VITALS: BP 104/70; TEMP 97.7; O2SAT 95
[2024-03-01] VITALS: BP 108/72; TEMP 98.1; O2SAT 95
[2024-03-01 04:00] VITALS: BP 104/74; TEMP 97.5; O2SAT 95
[2024-03-01] MEDS ORDERED: LEVO500T90 PO (07:53)
[2024-03-01 08:00] VITALS: BP 102/72; TEMP 98.4
[2024-03-01 08:28] LABS: BASOPHILS % (AUTO) 0.7 % (0.0-2.0); EOSINOPHILS # (AUTO) 0.1 K/uL (0.0-0.7); EOSINOPHILS % (AUTO) 2.6 % (0.0-6.0); HEMATOCRIT 37 % (39-51); HEMOGLOBIN 11.2 g/dL (13.5-17.5); LYMPHOCYTES % (AUTO) 19.8 % (20.0-44.0); MEAN CORPUSCULAR HEMOGLOBIN 22 PG (26.0-33.0); MEAN CORPUSCULAR HGB CONC 31 g/dl (31.0-36.0); MEAN CORPUSCULAR VOLUME 73 fL (80-96); MONOCYTES # (AUTO) 0.7 K/uL (0.1-1.30); MONOCYTES % (AUTO) 13.5 % (2.0-12.0); NEUTROPHILS # (AUTO) 3.4 K/uL (1.8-8.9); NEUTROPHILS % (AUTO) 63.4 % (43.0-81.0); PLATELET COUNT (AUTO) 216 K/uL (150-450); RED CELL DISTRIBUTION WIDTH 26.8 % (11.5-15.0); WHITE BLOOD COUNT (AUTO) 5.3 K/uL (4.3-11.0)
[2024-03-01] MEDS: POTASSIUM CHLORIDE 20 MEQ TAB.PRT.SR PO ONE (08:38)
[2024-03-01 09:14] LABS: CREATININE 1.8 mg/dL (0.6-1.3); POTASSIUM 2.9 mmol/L (3.5-5.1)
[2024-03-01 09:53] LABS: EOSINOPHILS % (MANUAL) 2 % (0-4); LYMPHOCYTES % (MANUAL) 20 % (16-48); MONOCYTES % (MANUAL) 13 % (0-11.0); NEUTROPHILS % (MANUAL) 65 (42-76)
[2024-03-01 09:54] LABS: ANISOCYTOSIS 1+; PLATELET ESTIMATE ADEQUATE
[2024-03-01 12:00] VITALS: BP 108/70; TEMP 97.9; O2SAT 95
== END 2024-03-01 15:35 | disposition home or self-care (01) | DRG 193 ==
LOC: ER 23:04 → TELE1 02-28 04:20 → MEDSG1 03-01 13:11
PROVIDERS: ADMIT Internal Medicine; ATTEND Internal Medicine
DX: J15.9 Unspecified bacterial pneumonia (principal); J96.20 Acute and chronic respiratory failure, unspecified whether with hypoxia or hypercapnia; I13.0 Hypertensive heart and chronic kidney disease with heart failure and stage 1 through stage 4 chronic kidney disease, or unspecified chronic kidney disease; I27.20 Pulmonary hypertension, unspecified; I50.9 Heart failure, unspecified; Z79.899 Other long term (current) drug therapy; I27.81 Cor pulmonale (chronic); N18.9 Chronic kidney disease, unspecified; D50.9 Iron deficiency anemia, unspecified; F15.10 Other stimulant abuse, uncomplicated; Z82.49 Family history of ischemic heart disease and other diseases of the circulatory system; J45.909 Unspecified asthma, uncomplicated
CPT/HCPCS: 36415; 71045-TC; 71250-TC; 76705-TC; 80048-TC; 80076-TC; 83540-TC; 83735-TC; 83880; 84100-TC; 84443-TC; 84484-TC; 85025-TC; 85730-TC; 93307-TC; 94760-TC; 94762-TC; 94799-TC; A4223; G0378; J0696; J1644; J1940; J7030; J7060

== ENCOUNTER 2024-03-08 05:32 | Emergency (ER) | payer OTHER ==
[~2024-03-08] VITALS: Ht 177.8 cm; Wt 95.3 kg
[~2024-03-08 05:32] MED LIST changes: +ELIQUIS PO; +LEVO500T90 PO; -SILD20TA PO; +TADA20TA43 PO
[2024-03-08] MEDS ORDERED: FUROSEMIDE 40 MG/4 ML VIAL ONE ×2 (06:03→08:01)
[2024-03-08] MEDS: FUROSEMIDE 40 MG/4 ML VIAL IV ONE ×2 (06:08→07:42)
[2024-03-08 07:10] LABS: BASOPHILS % (AUTO) 0.4 % (0.0-2.0); EOSINOPHILS % (AUTO) 0.3 % (0.0-6.0); HEMATOCRIT 35 % (39-51); HEMOGLOBIN 10.8 g/dL (13.5-17.5); LYMPHOCYTES # (AUTO) 0.6 K/uL (0.8-4.8); LYMPHOCYTES % (AUTO) 6.2 % (20.0-44.0); MEAN CORPUSCULAR HEMOGLOBIN 23 PG (26.0-33.0); MEAN CORPUSCULAR HGB CONC 31 g/dl (31.0-36.0); MEAN CORPUSCULAR VOLUME 74 fL (80-96); MONOCYTES # (AUTO) 0.5 K/uL (0.1-1.30); MONOCYTES % (AUTO) 5.6 % (2.0-12.0); NEUTROPHILS # (AUTO) 8.5 K/uL (1.8-8.9); NEUTROPHILS % (AUTO) 87.5 % (43.0-81.0); PLATELET COUNT (AUTO) 223 K/uL (150-450); WHITE BLOOD COUNT (AUTO) 9.7 K/uL (4.3-11.0)
[2024-03-08 07:15] LABS: INR 1.38 (0.91-1.10); PARTIAL THROMBOPLASTIN TIME 30.9 SEC (24.3-34.3); PROTHROMBIN TIME 14.3 SECS (9.2-11.1)
[2024-03-08 07:28] LABS: ALANINE AMINOTRANSFERASE 26 U/L (12-78); ALBUMIN 3.5 g/dL (3.4-5.0); ALKALINE PHOSPHATASE 149 U/L (46-116); ASPARTATE AMINOTRANSFERASE 25 U/L (15-37); BILIRUBIN,DIRECT 0.9 mg/dL (0.0-0.2); BILIRUBIN,TOTAL 2.9 mg/dL (0.2-1.0); CALCIUM, SERUM 8.6 mg/dL (8.5-10.1); CARBON DIOXIDE 25 mmol/L (21-32); CHLORIDE 99 mmol/L (98-107); CREATININE 2.2 mg/dL (0.6-1.3); GLUCOSE 150 mg/dL (74-106); NT-PRO BNP 7426 pg/mL (0-125); POTASSIUM 3.3 mmol/L (3.5-5.1); SODIUM SERUM 135 mmol/L (136-145); TOTAL PROTEIN, SERUM 8.5 g/dL (6.4-8.2); UREA NITROGEN, BLOOD 38 mg/dL (7-18)
[2024-03-08] MEDS ORDERED: diphenhydrAMINE HCL 50 MG/ML VIAL ONE ×2 (07:44→08:01)
[2024-03-08] MEDS ORDERED: methylPREDNISolone SOD SUCC 125 MG/2ML VIAL ONE ×2 (07:44→08:02)
[2024-03-08] MEDS: diphenhydrAMINE HCL 50 MG/ML VIAL IV ONE (07:45)
[2024-03-08] MEDS: methylPREDNISolone SOD SUCC 125 MG/2ML VIAL IV ONE (07:45)
[2024-03-08] MEDS ORDERED: LORAZEPAM INJ 2 MG/ML VIAL ONE (08:07)
[2024-03-08] MEDS: LORAZEPAM INJ 2 MG/ML VIAL IV ONE (09:00)
[2024-03-08 11:30] VITALS: BP 141/85; TEMP 98; O2SAT 94
== END 2024-03-08 12:10 | disposition short-term general hospital (02) ==
LOC: ER 05:41
DX: I50.9 Heart failure, unspecified (principal); G24.9 Dystonia, unspecified; F41.9 Anxiety disorder, unspecified; F15.10 Other stimulant abuse, uncomplicated; Z79.899 Other long term (current) drug therapy; Z20.822 Contact with and (suspected) exposure to COVID-19
CPT/HCPCS: 99285; 96374; 96375; 93005; 71045; 84145; 85025; 80048; 80076; 36415; 84484; 85730; 83880; 87426; J2060; J1200; J1940; J2930

== ENCOUNTER 2024-03-21 18:44 | Inpatient (IN) | payer OTHER ==
[~2024-03-21] VITALS: Ht 177.8 cm; Wt 95.3 kg
[2024-03-21] MEDS: SODIUM POLYSTYRENE SULFONATE 15 G/60 ML BOTTLE PO ONE ×2 (01:00→21:09)
[2024-03-21] MEDS: METOLAZONE 2.5 MG TABLET PO SCH (01:00)
[2024-03-21] MEDS ORDERED: FUROSEMIDE 40 MG/4 ML VIAL ONE (19:30)
[2024-03-21] MEDS: FUROSEMIDE 40 MG/4 ML VIAL IV ONE (19:31)
[2024-03-21 19:37] LABS: BASOPHILS % (AUTO) 0.6 % (0.0-2.0); EOSINOPHILS % (AUTO) 0.5 % (0.0-6.0); HEMATOCRIT 39 % (39-51); LYMPHOCYTES # (AUTO) 0.8 K/uL (0.8-4.8); LYMPHOCYTES % (AUTO) 9.5 % (20.0-44.0); MEAN CORPUSCULAR HEMOGLOBIN 23 PG (26.0-33.0); MEAN CORPUSCULAR HGB CONC 31 g/dl (31.0-36.0); MEAN CORPUSCULAR VOLUME 74 fL (80-96); MONOCYTES # (AUTO) 0.5 K/uL (0.1-1.30); MONOCYTES % (AUTO) 6.7 % (2.0-12.0); NEUTROPHILS # (AUTO) 6.5 K/uL (1.8-8.9); NEUTROPHILS % (AUTO) 82.7 % (43.0-81.0); PLATELET COUNT (AUTO) 217 K/uL (150-450); RED BLOOD CELL COUNT(AUTO) 5.27 MIL/uL (4.5-6.0); WHITE BLOOD COUNT (AUTO) 7.9 K/uL (4.3-11.0)
[2024-03-21 19:53] LABS: CALCIUM, SERUM 9.4 mg/dL (8.5-10.1); CARBON DIOXIDE 18 mmol/L (21-32); CHLORIDE 104 mmol/L (98-107); CREATININE 2.7 mg/dL (0.6-1.3); GLUCOSE 59 mg/dL (74-106); SODIUM SERUM 137 mmol/L (136-145); UREA NITROGEN, BLOOD 47 mg/dL (7-18)
[2024-03-21 19:55] LABS: POTASSIUM 6.3 mmol/L (3.5-5.1)
[2024-03-21 20:06] LABS: ALANINE AMINOTRANSFERASE 45 U/L (12-78); ALBUMIN 3.6 g/dL (3.4-5.0); ALKALINE PHOSPHATASE 164 U/L (46-116); ASPARTATE AMINOTRANSFERASE 38 U/L (15-37); BILIRUBIN,DIRECT 0.9 mg/dL (0.0-0.2); NT-PRO BNP 7508 pg/mL (0-125); TOTAL PROTEIN, SERUM 8.6 g/dL (6.4-8.2)
[2024-03-21 20:24] LABS: ANISOCYTOSIS 1+; EOSINOPHILS % (MANUAL) 1 % (0-4); LYMPHOCYTES % (MANUAL) 12 % (16-48); MONOCYTES % (MANUAL) 7 % (0-11.0); NEUTROPHILS % (MANUAL) 80 (42-76); PLATELET ESTIMATE ADEQU
[2024-03-21 20:25] LABS: OVALOCYTES 1+; TARGET CELLS RARE
[2024-03-21] MEDS: SODIUM BICARBONATE SYR 50 MEQ/50 ML DISP.SYRIN IV ONE (21:09)
[2024-03-21] MEDS: ALBUTEROL FS 2.5 MG/3 ML VIAL.NEB NEB ONE (21:14)
[2024-03-21] MEDS ORDERED: ACETAMINOPHEN 325 MG TABLET PO PRN (22:30)
[2024-03-22] MEDS ORDERED: SODIUM POLYSTYRENE SULFONATE 15 G/60 ML BOTTLE ONE (01:00)
[2024-03-22] MEDS: METOLAZONE 2.5 MG TABLET ONE (01:20)
[2024-03-22] MEDS: FUROSEMIDE 40 MG/4 ML VIAL IV SCH (09:00)
[2024-03-22] MEDS ORDERED: AMBRISENTAN 10 MG PO SCH (09:00)
[2024-03-22] MEDS ORDERED: TADALAFIL 40 MG PO SCH (09:00)
[2024-03-22 09:16] LABS: BASOPHILS % (AUTO) 0.8 % (0.0-2.0); EOSINOPHILS # (AUTO) 0.1 K/uL (0.0-0.7); EOSINOPHILS % (AUTO) 2.6 % (0.0-6.0); HEMATOCRIT 37 % (39-51); HEMOGLOBIN 10.8 g/dL (13.5-17.5); LYMPHOCYTES # (AUTO) 0.9 K/uL (0.8-4.8); LYMPHOCYTES % (AUTO) 15.7 % (20.0-44.0); MEAN CORPUSCULAR HEMOGLOBIN 23 PG (26.0-33.0); MEAN CORPUSCULAR HGB CONC 30 g/dl (31.0-36.0); MEAN CORPUSCULAR VOLUME 77 fL (80-96); MONOCYTES # (AUTO) 0.7 K/uL (0.1-1.30); NEUTROPHILS # (AUTO) 3.7 K/uL (1.8-8.9); NEUTROPHILS % (AUTO) 67.9 % (43.0-81.0); PLATELET COUNT (AUTO) 169 K/uL (150-450); RED BLOOD CELL COUNT(AUTO) 4.74 MIL/uL (4.5-6.0); RED CELL DISTRIBUTION WIDTH 23.5 % (11.5-15.0); WHITE BLOOD COUNT (AUTO) 5.5 K/uL (4.3-11.0)
[2024-03-22 09:54] LABS: CALCIUM, SERUM 7.8 mg/dL (8.5-10.1); CREATININE 2.1 mg/dL (0.6-1.3); POTASSIUM 4.3 mmol/L (3.5-5.1)
[2024-03-22] MEDS: APIXABAN 5 MG TABLET PO SCH (10:00)
[2024-03-22] MEDS: METOPROLOL SUCCINATE 25 MG TAB.SR.24H PO SCH (10:00)
[2024-03-22 12:57] VITALS: BP 113/78; TEMP 98.6; O2SAT 96
[2024-03-22 17:10] VITALS: BP 103/89; TEMP 97.2; O2SAT 94
[2024-03-22 20:00] VITALS: BP 108/80; TEMP 97.2; O2SAT 94
[2024-03-23] VITALS (7 sets, daily range): BP systolic 105–125; BP diastolic 83–92; TEMP 97.2–98.4; O2SAT 95–100
[2024-03-23 07:03] LABS: BASOPHILS % (AUTO) 0.6 % (0.0-2.0); EOSINOPHILS # (AUTO) 0.2 K/uL (0.0-0.7); EOSINOPHILS % (AUTO) 2.9 % (0.0-6.0); HEMATOCRIT 36 % (39-51); HEMOGLOBIN 11.2 g/dL (13.5-17.5); LYMPHOCYTES # (AUTO) 0.8 K/uL (0.8-4.8); LYMPHOCYTES % (AUTO) 15.2 % (20.0-44.0); MEAN CORPUSCULAR HEMOGLOBIN 23 PG (26.0-33.0); MEAN CORPUSCULAR HGB CONC 31 g/dl (31.0-36.0); MEAN CORPUSCULAR VOLUME 73 fL (80-96); MONOCYTES # (AUTO) 0.6 K/uL (0.1-1.30); MONOCYTES % (AUTO) 11.3 % (2.0-12.0); NEUTROPHILS # (AUTO) 3.8 K/uL (1.8-8.9); PLATELET COUNT (AUTO) 191 K/uL (150-450); RED BLOOD CELL COUNT(AUTO) 4.94 MIL/uL (4.5-6.0); RED CELL DISTRIBUTION WIDTH 23.2 % (11.5-15.0); WHITE BLOOD COUNT (AUTO) 5.4 K/uL (4.3-11.0)
[2024-03-23 07:40] LABS: CALCIUM, SERUM 7.9 mg/dL (8.5-10.1); CREATININE 1.8 mg/dL (0.6-1.3); MAGNESIUM 2.3 mg/dL (1.8-2.4); POTASSIUM 3.3 mmol/L (3.5-5.1)
[2024-03-23] MEDS: POTASSIUM CHLORIDE 20 MEQ TAB.PRT.SR PO ONE (09:20)
[2024-03-24] VITALS: BP 110/85; TEMP 98.4; O2SAT 100
[2024-03-24 04:00] VITALS: BP 108/88; TEMP 98.4; O2SAT 100
[2024-03-24 05:03] VITALS: O2SAT 96
[2024-03-24 08:31] LABS: CREATININE 1.7 mg/dL (0.6-1.3); POTASSIUM 3.3 mmol/L (3.5-5.1)
[2024-03-24] MEDS ORDERED: METO2.5T7 PO (08:47)
[2024-03-24] MEDS ORDERED: FURO-144 PO (08:47)
[2024-03-24] MEDS ORDERED: APIX5TAB PO (08:49)
[2024-03-24 08:55] VITALS: BP 118/92; TEMP 97.9; O2SAT 96
[2024-03-24 12:20] VITALS: BP 106/85; TEMP 98; O2SAT 97
[2024-03-24] MEDS: POTASSIUM CHLORIDE 20 MEQ TAB.PRT.SR PO ONE (15:34)
[2024-03-24 16:15] VITALS: BP 112/81; TEMP 97.6; O2SAT 97
== END 2024-03-24 17:59 | DRG 207 ==
LOC: ER 18:52 → TRANSITION 03-22 00:55 → TELE1 03-22 11:46
PROVIDERS: ADMIT Internal Medicine; ATTEND Internal Medicine
PROC: 5A09357 Assistance with Respiratory Ventilation, Less than 24 Consecutive Hours, Continuous Positive Airway Pressure (ICD-10-PCS; principal; 2024-03-22)
DX: I27.0 Primary pulmonary hypertension (principal); J96.21 Acute and chronic respiratory failure with hypoxia; I50.23 Acute on chronic systolic (congestive) heart failure; N17.9 Acute kidney failure, unspecified; N18.9 Chronic kidney disease, unspecified; I27.81 Cor pulmonale (chronic); Z20.822 Contact with and (suspected) exposure to COVID-19; Z79.01 Long term (current) use of anticoagulants; Z79.899 Other long term (current) drug therapy; Z99.81 Dependence on supplemental oxygen; J45.909 Unspecified asthma, uncomplicated; Z82.49 Family history of ischemic heart disease and other diseases of the circulatory system; Z91.148 Patient's other noncompliance with medication regimen for other reason; E87.5 Hyperkalemia; E87.6 Hypokalemia; F15.10 Other stimulant abuse, uncomplicated; F17.200 Nicotine dependence, unspecified, uncomplicated; I48.20 Chronic atrial fibrillation, unspecified; Z59.00 Homelessness unspecified
CPT/HCPCS: 36415; 71045-TC; 80048-TC; 80076-TC; 82962-TC; 83735-TC; 83880; 84484-TC; 85025-TC; 93970-TC; 94760-TC; 94761-TC; 94762-TC; 94799-TC; G0378; J1940; J3490

== ENCOUNTER 2024-05-27 00:23 | Inpatient (IN) | payer MEDICAID, OTHER ==
[2024-05-27] VITALS (26 sets, daily range): BP systolic 70–153; BP diastolic 60–107; TEMP 98–98.9; O2SAT 73–100
[~2024-05-27] VITALS: Ht 177.8 cm; Wt 83.0 kg
[~2024-05-27 00:23] MED LIST changes: +APIX5TAB PO; -ELIQUIS PO; -LEVO500T90 PO; +METO2.5T7 PO; -SPIR25TA6 PO
[2024-05-27 01:12] LABS: BASOPHILS % (AUTO) 0.8 % (0.0-2.0); EOSINOPHILS % (AUTO) 0.7 % (0.0-6.0); HEMATOCRIT 37 % (39-51); HEMOGLOBIN 11.3 g/dL (13.5-17.5); LYMPHOCYTES # (AUTO) 1.1 K/uL (0.8-4.8); LYMPHOCYTES % (AUTO) 18.9 % (20.0-44.0); MEAN CORPUSCULAR HEMOGLOBIN 22 PG (26.0-33.0); MEAN CORPUSCULAR HGB CONC 31 g/dl (31.0-36.0); MEAN CORPUSCULAR VOLUME 72 fL (80-96); MONOCYTES # (AUTO) 0.6 K/uL (0.1-1.30); NEUTROPHILS # (AUTO) 3.9 K/uL (1.8-8.9); NEUTROPHILS % (AUTO) 68.6 % (43.0-81.0); PLATELET COUNT (AUTO) 162 K/uL (150-450); RED BLOOD CELL COUNT(AUTO) 5.07 MIL/uL (4.5-6.0); RED CELL DISTRIBUTION WIDTH 24.1 % (11.5-15.0); WHITE BLOOD COUNT (AUTO) 5.8 K/uL (4.3-11.0)
[2024-05-27] MEDS ORDERED: METOPROLOL TARTRATE INJ 5 MG/5 ML AMPUL ONE (01:18)
[2024-05-27 01:22] LABS: CALCIUM, SERUM 8.8 mg/dL (8.5-10.1); CARBON DIOXIDE 15 mmol/L (21-32); CHLORIDE 99 mmol/L (98-107); CREATININE 2.4 mg/dL (0.6-1.3); GLUCOSE 82 mg/dL (74-106); POTASSIUM 3.6 mmol/L (3.5-5.1); SODIUM SERUM 135 mmol/L (136-145); UREA NITROGEN, BLOOD 43 mg/dL (7-18)
[2024-05-27] MEDS: METOPROLOL TARTRATE INJ 5 MG/5 ML AMPUL IVP ONE (01:23)
[2024-05-27 01:34] LABS: ALANINE AMINOTRANSFERASE 106 U/L (12-78); ALBUMIN 2.8 g/dL (3.4-5.0); ALKALINE PHOSPHATASE 130 U/L (46-116); ASPARTATE AMINOTRANSFERASE 144 U/L (15-37); BILIRUBIN,DIRECT 2.6 mg/dL (0.0-0.2); BILIRUBIN,TOTAL 6.5 mg/dL (0.2-1.0); NT-PRO BNP 7768 pg/mL (0-125); TOTAL PROTEIN, SERUM 7.2 g/dL (6.4-8.2)
[2024-05-27 01:51] LABS: ACETAMINOPHEN <10 ug/ml (10-30); ALCOHOL, BLOOD < 3 mg/dL (0-10); SALICYLATE < 2.3 mg/dL (2.8-20.0)
[2024-05-27 01:54] LABS: LACTIC ACID 6.7 mmol/L (0.4-2.0)
[2024-05-27] MEDS: POTASSIUM CHLORIDE 20 MEQ TAB.PRT.SR PO ONE (02:17)
[2024-05-27] MEDS: FUROSEMIDE 40 MG/4 ML VIAL IV ONE (02:17)
[2024-05-27 02:32] LABS: INR 2.01 (0.91-1.10); PROTHROMBIN TIME 20.4 SECS (9.2-11.1)
[2024-05-27] MEDS: METOPROLOL TARTRATE 25 MG TABLET PO ONE (03:16)
[2024-05-27] MEDS ORDERED: MAG HYDROX/AL HYDROX/SIMETH 30 ML UDC PO PRN (03:30)
[2024-05-27] MEDS: NITROGLYCERIN 0.4 MG/TAB BOTTLE SL ONE (03:30)
[2024-05-27] MEDS ORDERED: ACETAMINOPHEN 325 MG TABLET PO PRN (03:30)
[2024-05-27] MEDS ORDERED: ONDANSETRON HCL/PF 4 MG/2 ML VIAL IVP PRN (03:30)
[2024-05-27] MEDS: CEFTRIAXONE 1 G VIAL IM SCH (05:31)
[2024-05-27] MEDS: CEFTRIAXONE 1GM BAG (ER ONLY) 50 ML IV ONE (05:45)
[2024-05-27] MEDS: METRONIDAZOLE 500MG/ NS 100ML 500 MG in PREMIX 1 EA IV SCH ×2 (06:10→12:14)
[2024-05-27] MEDS: METRONIDAZOLE 500MG/ NS 100ML 100 ML IV ONE (06:40)
[2024-05-27] MEDS ORDERED: APIX5TAB PO (08:34)
[2024-05-27] MEDS ORDERED: METO25TA6 PO (08:34)
[2024-05-27] MEDS ORDERED: SPIR25TA6 PO (08:34)
[2024-05-27] MEDS ORDERED: FURO-144 PO (08:34)
[2024-05-27] MEDS: PANTOPRAZOLE 40 MG VIAL IV SCH (08:50)
[2024-05-27] MEDS: APIXABAN 5 MG TABLET PO SCH (08:53)
[2024-05-27] MEDS ORDERED: AMBRISENTAN 10 MG PO SCH (09:00)
[2024-05-27] MEDS: METOLAZONE 2.5 MG TABLET PO SCH (10:39)
[2024-05-27] MEDS: SILDENAFIL CITRATE 20 MG TABLET PO SCH (12:15)
[2024-05-27 16:19] LABS: ABG BASE EXCESS -6.7 mmol/L (-2.0-2.0); ABG PCO2 24.1 mmHg (35.0-45.0); ABG PH 7.436 (7.340-7.440); ABG PO2 80.3 mmHg (75.0-100.0); ABG TOTAL HEMOGLOBIN 12.3 G/dL (14.0-18.0); AaDO2 464.8 mmHg; COHb 1.4 % (0.5-1.5); MetHb 0.2 % (0.0-1.5); O2Hb 93.5 % (94.0-97.0); SITE, ABG Right Radial; VENT MODE, BG 15 IPAP / 5 EPAP
[2024-05-27] MEDS: FUROSEMIDE 20 MG/2 ML VIAL IV SCH (16:43)
[2024-05-27] MEDS ORDERED: FUROSEMIDE 20 MG/2 ML VIAL IV SCH ×2 (17:00)
[2024-05-28] VITALS (27 sets, daily range): BP systolic 95–129; BP diastolic 65–95; TEMP 97–98.5; O2SAT 91–100
[2024-05-28] MEDS: CEFTRIAXONE 1 G in IV D5W 50 ML IV SCH (05:06)
[2024-05-28 05:11] LABS: BASOPHILS % (AUTO) 0.9 % (0.0-2.0); EOSINOPHILS # (AUTO) 0.2 K/uL (0.0-0.7); EOSINOPHILS % (AUTO) 3.6 % (0.0-6.0); HEMATOCRIT 36 % (39-51); HEMOGLOBIN 11.2 g/dL (13.5-17.5); LYMPHOCYTES # (AUTO) 0.7 K/uL (0.8-4.8); LYMPHOCYTES % (AUTO) 14.7 % (20.0-44.0); MEAN CORPUSCULAR HEMOGLOBIN 22 PG (26.0-33.0); MEAN CORPUSCULAR HGB CONC 31 g/dl (31.0-36.0); MEAN CORPUSCULAR VOLUME 71 fL (80-96); MONOCYTES # (AUTO) 0.6 K/uL (0.1-1.30); MONOCYTES % (AUTO) 11.4 % (2.0-12.0); NEUTROPHILS # (AUTO) 3.4 K/uL (1.8-8.9); NEUTROPHILS % (AUTO) 69.4 % (43.0-81.0); PLATELET COUNT (AUTO) 146 K/uL (150-450); RED BLOOD CELL COUNT(AUTO) 5.05 MIL/uL (4.5-6.0); RED CELL DISTRIBUTION WIDTH 23.2 % (11.5-15.0)
[2024-05-28 06:15] LABS: ALBUMIN 2.4 g/dL (3.4-5.0); BILIRUBIN,TOTAL 4.7 mg/dL (0.2-1.0); CALCIUM, SERUM 8.5 mg/dL (8.5-10.1); MAGNESIUM 2.2 mg/dL (1.8-2.4); PHOSPHORUS 3.7 mg/dL (2.5-4.9); POTASSIUM 3.5 mmol/L (3.5-5.1); TOTAL PROTEIN, SERUM 6.5 g/dL (6.4-8.2)
[2024-05-28 08:52] LABS: CREATINE KINASE, TOTAL 489 U/L (39-308)
[2024-05-28] MEDS: PANTOPRAZOLE 40 MG TABLET.DR PO SCH (09:22)
[2024-05-28 15:11] LABS: APPEARANCE,URINE CLEAR (CLEAR); BILIRUBIN,URINE NEGATIVE (NEGATIVE); BLOOD, URINE NEGATIVE Ery/uL (NEGATIVE); COLOR,URINE YELLOW (YELLOW); KETONES,URINE NEGATIVE (NEGATIVE); LEUKOCYTE ESTERASE ,URINE NEGATIVE (NEGATIVE); NITRITE, URINE NEGATIVE (NEGATIVE); PROTEIN,URINE NEGATIVE (NEGATIVE); UGLUCOSE NEGATIVE (NEGATIVE)
[2024-05-28 15:19] LABS: CREATININE, URINE < 13.0 MG/DL (30.0-125.0); URINE SODIUM, RANDOM 116 mmol/l (40-220); URINE TOTAL PROTEIN 2.4 mg/dL (0-11.9)
[2024-05-28 15:23] LABS: AMPHETAMINE, URINE POSITIVE (NEGATIVE); BARBITURATE, URINE NEGATIVE (NEGATIVE); BENZODIAZEPINE, URINE NEGATIVE (NEGATIVE); CANNABINOID, URINE NEGATIVE (NEGATIVE); COCCAINE, URINE NEGATIVE (NEGATIVE); OPIATE, URINE NEGATIVE (NEGATIVE); PHENCYCLIDINE SCREEN,URINE NEGATIVE (NEGATIVE)
[2024-05-28 16:58] LABS: ADD URINE CULTURE NO; BACTERIA,URINE None seen /HPF (None Seen); EOSINOPHIL,URINE None Seen; RBC,URINE NONE SEEN /HPF (0-2); SQUAMOUS EPITHELIAL CELL,UR None Seen /HPF (None Seen); WBC,URINE NONE SEEN /HPF (0-3)
[2024-05-29] VITALS (7 sets, daily range): BP systolic 94–115; BP diastolic 70–92; TEMP 97.7–99; O2SAT 12–99
[2024-05-29 10:07] LABS: PTH, INTACT 51 pg/mL (15-65)
[2024-05-29 12:31] LABS: CALCIUM, SERUM 8.4 mg/dL (8.5-10.1); CREATININE 1.5 mg/dL (0.6-1.3); MAGNESIUM 1.7 mg/dL (1.8-2.4); PHOSPHORUS 2.8 mg/dL (2.5-4.9); POTASSIUM 2.8 mmol/L (3.5-5.1)
[2024-05-29 13:28] LABS: BASOPHILS % (AUTO) 0.8 % (0.0-2.0); EOSINOPHILS # (AUTO) 0.2 K/uL (0.0-0.7); EOSINOPHILS % (AUTO) 3.4 % (0.0-6.0); HEMATOCRIT 33 % (39-51); HEMOGLOBIN 10.7 g/dL (13.5-17.5); LYMPHOCYTES # (AUTO) 0.5 K/uL (0.8-4.8); LYMPHOCYTES % (AUTO) 10.8 % (20.0-44.0); MEAN CORPUSCULAR HEMOGLOBIN 22 PG (26.0-33.0); MEAN CORPUSCULAR HGB CONC 32 g/dl (31.0-36.0); MEAN CORPUSCULAR VOLUME 69 fL (80-96); MONOCYTES # (AUTO) 0.6 K/uL (0.1-1.30); NEUTROPHILS # (AUTO) 3.3 K/uL (1.8-8.9); PLATELET COUNT (AUTO) 140 K/uL (150-450); RED BLOOD CELL COUNT(AUTO) 4.83 MIL/uL (4.5-6.0); RED CELL DISTRIBUTION WIDTH 23.6 % (11.5-15.0); WHITE BLOOD COUNT (AUTO) 4.6 K/uL (4.3-11.0)
[2024-05-29] MEDS ORDERED: POTASSIUM CHLORIDE 20 MEQ TAB.PRT.SR PO SCH ×2 (14:30→18:00)
[2024-05-29] MEDS: POTASSIUM CHLORIDE 20 MEQ TAB.PRT.SR PO SCH (14:47)
[2024-05-30] VITALS (11 sets, daily range): BP systolic 97–120; BP diastolic 73–90; TEMP 97.5–98.9; O2SAT 12–99
[2024-05-30 07:54] LABS: BASOPHILS % (AUTO) 0.8 % (0.0-2.0); EOSINOPHILS # (AUTO) 0.1 K/uL (0.0-0.7); EOSINOPHILS % (AUTO) 2.5 % (0.0-6.0); HEMATOCRIT 35 % (39-51); HEMOGLOBIN 10.9 g/dL (13.5-17.5); LYMPHOCYTES # (AUTO) 0.8 K/uL (0.8-4.8); LYMPHOCYTES % (AUTO) 15.4 % (20.0-44.0); MEAN CORPUSCULAR HEMOGLOBIN 22 PG (26.0-33.0); MEAN CORPUSCULAR HGB CONC 31 g/dl (31.0-36.0); MEAN CORPUSCULAR VOLUME 70 fL (80-96); MONOCYTES # (AUTO) 0.8 K/uL (0.1-1.30); MONOCYTES % (AUTO) 15.5 % (2.0-12.0); NEUTROPHILS # (AUTO) 3.3 K/uL (1.8-8.9); NEUTROPHILS % (AUTO) 65.8 % (43.0-81.0); PLATELET COUNT (AUTO) 148 K/uL (150-450); RED BLOOD CELL COUNT(AUTO) 4.99 MIL/uL (4.5-6.0); RED CELL DISTRIBUTION WIDTH 23.2 % (11.5-15.0); WHITE BLOOD COUNT (AUTO) 5.1 K/uL (4.3-11.0)
[2024-05-30] MEDS ORDERED: AMIODARONE 450 MG in IV D5W 250 ML IV PRN (09:00)
[2024-05-30 09:09] LABS: CALCIUM, SERUM 8.7 mg/dL (8.5-10.1); CREATININE 1.4 mg/dL (0.6-1.3); POTASSIUM 3.3 mmol/L (3.5-5.1)
[2024-05-30] MEDS: Magnesium 1GM/D5W 100ML PREMIX 100 ML IV SCH (09:32)
[2024-05-30] MEDS: AMIODARONE 150 MG in IV D5W 100 ML IV ONE (09:39)
[2024-05-30] MEDS: AMIODARONE 450 MG in IV D5W 241 ML IV PRN (10:14)
[2024-05-30] MEDS: METRONIDAZOLE 500 MG TABLET PO SCH (13:03)
[2024-05-30 15:59] LABS: ALBUMIN 2.6 g/dL (3.4-5.0); CALCIUM, SERUM 8.6 mg/dL (8.5-10.1); CREATININE 1.4 mg/dL (0.6-1.3); MAGNESIUM 2.1 mg/dL (1.8-2.4); POTASSIUM 3.7 mmol/L (3.5-5.1); TOTAL PROTEIN, SERUM 7.1 g/dL (6.4-8.2)
[2024-05-30 16:17] LABS: BILIRUBIN,TOTAL 2.4 mg/dL (0.2-1.0)
[2024-05-30] MEDS: ALBUTEROL FS 2.5 MG/3 ML VIAL.NEB NEB SCH (17:22)
[2024-05-30] MEDS: IPRATROPIUM NEB FS 0.5 MG/2.5 ML AMPUL.NEB NEB SCH (17:22)
[2024-05-31] VITALS (12 sets, daily range): BP systolic 105–124; BP diastolic 61–93; TEMP 97.3–98.2; O2SAT 89–99
[2024-05-31 08:15] LABS: BASOPHILS % (AUTO) 0.4 % (0.0-2.0); EOSINOPHILS # (AUTO) 0.1 K/uL (0.0-0.7); EOSINOPHILS % (AUTO) 2.1 % (0.0-6.0); HEMATOCRIT 36 % (39-51); HEMOGLOBIN 11.2 g/dL (13.5-17.5); LYMPHOCYTES # (AUTO) 0.8 K/uL (0.8-4.8); MEAN CORPUSCULAR HEMOGLOBIN 22 PG (26.0-33.0); MEAN CORPUSCULAR HGB CONC 31 g/dl (31.0-36.0); MEAN CORPUSCULAR VOLUME 69 fL (80-96); MONOCYTES # (AUTO) 0.8 K/uL (0.1-1.30); MONOCYTES % (AUTO) 15.9 % (2.0-12.0); NEUTROPHILS # (AUTO) 3.5 K/uL (1.8-8.9); NEUTROPHILS % (AUTO) 65.6 % (43.0-81.0); PLATELET COUNT (AUTO) 150 K/uL (150-450); RED CELL DISTRIBUTION WIDTH 23.3 % (11.5-15.0); WHITE BLOOD COUNT (AUTO) 5.3 K/uL (4.3-11.0)
[2024-05-31 09:18] LABS: ALBUMIN 2.8 g/dL (3.4-5.0); BILIRUBIN,TOTAL 2.9 mg/dL (0.2-1.0); CALCIUM, SERUM 8.7 mg/dL (8.5-10.1); CREATININE 1.4 mg/dL (0.6-1.3); MAGNESIUM 2.2 mg/dL (1.8-2.4); PHOSPHORUS 3.2 mg/dL (2.5-4.9); TOTAL PROTEIN, SERUM 7.5 g/dL (6.4-8.2)
[2024-05-31] MEDS: ALBUTEROL HALF STRENGTH 1.25 MG/3 ML VIAL.NEB NEB SCH ×2 (10:00→11:25)
[2024-05-31] MEDS: methylPREDNISolone SOD SUCC 40 MG/ML VIAL IV SCH (11:20)
[2024-05-31] MEDS: DILTIAZEM HCL CD 240 MG PO SCH (11:22)
[2024-05-31 13:29] LABS: ANISOCYTOSIS 1+; HYPOCHROMASIA 1+; LYMPHOCYTES % (MANUAL) 18 % (16-48); MONOCYTES % (MANUAL) 12 % (0-11.0); NEUTROPHILS % (MANUAL) 70 (42-76); OVALOCYTES 1+; PLATELET ESTIMATE ADEQUATE; TARGET CELLS 1+
[2024-06-01] VITALS (14 sets, daily range): BP systolic 102–121; BP diastolic 72–89; TEMP 97.1–98.4; O2SAT 90–99
[2024-06-01 05:07] LABS: *SPE A/G RATIO 0.8 (0.7-1.7); *SPE ALBUMIN 2.9 g/dL (2.9-4.4); *SPE ALPHA-1-GLOBULIN 0.3 g/dL (0.0-0.4); *SPE ALPHA-2-GLOBULIN 0.4 g/dL (0.4-1.0); *SPE BETA GLOBULIN 0.9 g/dL (0.7-1.3); *SPE GLOBULIN, TOTAL 3.6 g/dL (2.2-3.9); *SPE M-SPIKE Not Observed g/dL (Not Observed); *SPE PROTEIN TOTAL 6.5 g/dL (6.0-8.5)
[2024-06-01 11:02] LABS: CALCIUM, SERUM 8.5 mg/dL (8.5-10.1); CREATININE 1.6 mg/dL (0.6-1.3); POTASSIUM 3.6 mmol/L (3.5-5.1)
[2024-06-02] VITALS (17 sets, daily range): BP systolic 106–130; BP diastolic 65–83; TEMP 97.3–208.9; O2SAT 93–98
[2024-06-02 06:41] LABS: BASOPHILS % (AUTO) 0.1 % (0.0-2.0); HEMATOCRIT 35 % (39-51); HEMOGLOBIN 10.7 g/dL (13.5-17.5); LYMPHOCYTES # (AUTO) 0.4 K/uL (0.8-4.8); LYMPHOCYTES % (AUTO) 2.6 % (20.0-44.0); MEAN CORPUSCULAR HEMOGLOBIN 21 PG (26.0-33.0); MEAN CORPUSCULAR HGB CONC 31 g/dl (31.0-36.0); MEAN CORPUSCULAR VOLUME 69 fL (80-96); MONOCYTES # (AUTO) 0.5 K/uL (0.1-1.30); NEUTROPHILS # (AUTO) 12.7 K/uL (1.8-8.9); NEUTROPHILS % (AUTO) 93.3 % (43.0-81.0); PLATELET COUNT (AUTO) 148 K/uL (150-450); RED BLOOD CELL COUNT(AUTO) 5.07 MIL/uL (4.5-6.0); RED CELL DISTRIBUTION WIDTH 23.8 % (11.5-15.0); WHITE BLOOD COUNT (AUTO) 13.6 K/uL (4.3-11.0)
[2024-06-02 07:09] LABS: CALCIUM, SERUM 8.6 mg/dL (8.5-10.1); CREATININE 1.5 mg/dL (0.6-1.3); MAGNESIUM 2.3 mg/dL (1.8-2.4); PHOSPHORUS 3.6 mg/dL (2.5-4.9); POTASSIUM 3.4 mmol/L (3.5-5.1)
[2024-06-02] MEDS: methylPREDNISolone SOD SUCC 40 MG/ML VIAL IV SCH (08:35)
[2024-06-02] MEDS: POTASSIUM CHLORIDE 10 MEQ TABLET.SA PO SCH (09:53)
[2024-06-02] MEDS: LOSARTAN POTASSIUM 25 MG TABLET PO SCH (12:04)
[2024-06-03] VITALS (20 sets, daily range): BP systolic 109–116; BP diastolic 71–88; TEMP 97.3–97.9; O2SAT 90–99
[2024-06-03 06:57] LABS: BASOPHILS % (AUTO) 0.3 % (0.0-2.0); HEMATOCRIT 36 % (39-51); HEMOGLOBIN 11.1 g/dL (13.5-17.5); LYMPHOCYTES # (AUTO) 0.4 K/uL (0.8-4.8); LYMPHOCYTES % (AUTO) 3.9 % (20.0-44.0); MEAN CORPUSCULAR HEMOGLOBIN 21 PG (26.0-33.0); MEAN CORPUSCULAR HGB CONC 31 g/dl (31.0-36.0); MEAN CORPUSCULAR VOLUME 69 fL (80-96); MONOCYTES # (AUTO) 0.6 K/uL (0.1-1.30); MONOCYTES % (AUTO) 5.2 % (2.0-12.0); NEUTROPHILS % (AUTO) 90.6 % (43.0-81.0); PLATELET COUNT (AUTO) 157 K/uL (150-450); RED CELL DISTRIBUTION WIDTH 23.3 % (11.5-15.0)
[2024-06-03 07:38] LABS: CALCIUM, SERUM 8.9 mg/dL (8.5-10.1); MAGNESIUM 2.2 mg/dL (1.8-2.4); PHOSPHORUS 3.2 mg/dL (2.5-4.9); POTASSIUM 3.1 mmol/L (3.5-5.1)
[2024-06-03 07:58] LABS: CREATININE 1.4 mg/dL (0.6-1.3)
[2024-06-03] MEDS: POTASSIUM CHLORIDE 20 MEQ TAB.PRT.SR PO ONE (09:15)
[2024-06-03] MEDS: FUROSEMIDE 40 MG TABLET PO SCH (09:15)
[2024-06-03] MEDS: METOPROLOL TARTRATE 25 MG TABLET PO SCH (15:08)
[2024-06-04] VITALS (14 sets, daily range): BP systolic 107–125; BP diastolic 71–92; TEMP 97.3–97.7; O2SAT 90–94
[2024-06-04 06:39] LABS: BASOPHILS % (AUTO) 0.1 % (0.0-2.0); HEMATOCRIT 36 % (39-51); HEMOGLOBIN 11.3 g/dL (13.5-17.5); LYMPHOCYTES # (AUTO) 0.4 K/uL (0.8-4.8); LYMPHOCYTES % (AUTO) 4.4 % (20.0-44.0); MEAN CORPUSCULAR HEMOGLOBIN 22 PG (26.0-33.0); MEAN CORPUSCULAR HGB CONC 31 g/dl (31.0-36.0); MEAN CORPUSCULAR VOLUME 69 fL (80-96); MONOCYTES # (AUTO) 0.8 K/uL (0.1-1.30); MONOCYTES % (AUTO) 8.3 % (2.0-12.0); NEUTROPHILS # (AUTO) 8.3 K/uL (1.8-8.9); NEUTROPHILS % (AUTO) 87.2 % (43.0-81.0); PLATELET COUNT (AUTO) 176 K/uL (150-450); RED BLOOD CELL COUNT(AUTO) 5.25 MIL/uL (4.5-6.0); RED CELL DISTRIBUTION WIDTH 23.5 % (11.5-15.0); WHITE BLOOD COUNT (AUTO) 9.5 K/uL (4.3-11.0)
[2024-06-04 07:10] LABS: CALCIUM, SERUM 8.1 mg/dL (8.5-10.1); CREATININE 1.5 mg/dL (0.6-1.3); PHOSPHORUS 3.1 mg/dL (2.5-4.9)
[2024-06-04] MEDS: MAGNESIUM HYDROXIDE 30 ML UDC PO PRN (08:20)
[2024-06-04] MEDS: POTASSIUM CHLORIDE 20 MEQ TAB.PRT.SR PO SCH ×2 (10:36→12:41)
[2024-06-04] MEDS: DOCUSATE SODIUM 250 MG CAPSULE PO SCH (11:41)
[2024-06-04] MEDS: NA PHOS,M-B/NA PHOS,DI-BA 1 EA ENEMA RC PRN (18:37)
[2024-06-05] VITALS (28 sets, daily range): BP systolic 87–128; BP diastolic 62–96; TEMP 96.9–97.6; O2SAT 79–99
[2024-06-05 06:48] LABS: BASOPHILS % (AUTO) 0.1 % (0.0-2.0); HEMATOCRIT 37 % (39-51); HEMOGLOBIN 11.6 g/dL (13.5-17.5); LYMPHOCYTES # (AUTO) 0.6 K/uL (0.8-4.8); LYMPHOCYTES % (AUTO) 6.8 % (20.0-44.0); MEAN CORPUSCULAR HEMOGLOBIN 22 PG (26.0-33.0); MEAN CORPUSCULAR HGB CONC 31 g/dl (31.0-36.0); MEAN CORPUSCULAR VOLUME 69 fL (80-96); MONOCYTES # (AUTO) 0.8 K/uL (0.1-1.30); MONOCYTES % (AUTO) 9.7 % (2.0-12.0); NEUTROPHILS # (AUTO) 7.2 K/uL (1.8-8.9); NEUTROPHILS % (AUTO) 83.4 % (43.0-81.0); PLATELET COUNT (AUTO) 197 K/uL (150-450); RED BLOOD CELL COUNT(AUTO) 5.39 MIL/uL (4.5-6.0); RED CELL DISTRIBUTION WIDTH 23.4 % (11.5-15.0); WHITE BLOOD COUNT (AUTO) 8.6 K/uL (4.3-11.0)
[2024-06-05 07:15] LABS: CALCIUM, SERUM 8.7 mg/dL (8.5-10.1); CREATININE 1.7 mg/dL (0.6-1.3); POTASSIUM 3.9 mmol/L (3.5-5.1)
[2024-06-05] MEDS ORDERED: LOSA25TA27 PO (10:14)
[2024-06-05] MEDS ORDERED: METO25TA20 PO (10:14)
[2024-06-05] MEDS ORDERED: DILT240C88 PO (10:14)
[2024-06-05] MEDS ORDERED: FUROSEMIDE 40 MG/4 ML VIAL IV SCH (11:30)
[2024-06-05] MEDS: AMIODARONE 150 MG in IV D5W 100 ML IV ONE (12:18)
[2024-06-05] MEDS: AMIODARONE 450 MG in IV D5W 241 ML IV PRN (13:31)
[2024-06-05] MEDS: FUROSEMIDE 40 MG/4 ML VIAL IV SCH (17:07)
[2024-06-05] MEDS: methylPREDNISolone SOD SUCC 40 MG/ML VIAL IV SCH (17:07)
[2024-06-05] MEDS: POLYETHYLENE GLYCOL 3350 17 GM POWD.PACK PO PRN (20:32)
[2024-06-06] VITALS (52 sets, daily range): BP systolic 92–141; BP diastolic 65–99; TEMP 97.3–97.8; O2SAT 81–100
[2024-06-06] MEDS: IV NS 0.9% 250 ML IV PRN (04:43)
[2024-06-06 04:56] LABS: HEMATOCRIT 39 % (39-51); HEMOGLOBIN 12.1 g/dL (13.5-17.5); LYMPHOCYTES # (AUTO) 0.4 K/uL (0.8-4.8); LYMPHOCYTES % (AUTO) 5.8 % (20.0-44.0); MEAN CORPUSCULAR HEMOGLOBIN 22 PG (26.0-33.0); MEAN CORPUSCULAR HGB CONC 31 g/dl (31.0-36.0); MEAN CORPUSCULAR VOLUME 69 fL (80-96); MONOCYTES # (AUTO) 0.5 K/uL (0.1-1.30); MONOCYTES % (AUTO) 6.3 % (2.0-12.0); NEUTROPHILS # (AUTO) 6.3 K/uL (1.8-8.9); NEUTROPHILS % (AUTO) 87.9 % (43.0-81.0); PLATELET COUNT (AUTO) 204 K/uL (150-450); RED BLOOD CELL COUNT(AUTO) 5.58 MIL/uL (4.5-6.0); RED CELL DISTRIBUTION WIDTH 22.5 % (11.5-15.0); WHITE BLOOD COUNT (AUTO) 7.2 K/uL (4.3-11.0)
[2024-06-06 05:10] LABS: CALCIUM, SERUM 8.3 mg/dL (8.5-10.1); CREATININE 1.6 mg/dL (0.6-1.3); MAGNESIUM 2.3 mg/dL (1.8-2.4); PHOSPHORUS 4.4 mg/dL (2.5-4.9); POTASSIUM 3.1 mmol/L (3.5-5.1)
[2024-06-06 05:58] LABS: PLATELET ESTIMATE ADEQUATE
[2024-06-06 05:59] LABS: ANISOCYTOSIS 1+; OVALOCYTES 1+; TARGET CELLS 1+
[2024-06-06] MEDS: POTASSIUM CL. PREMIX PERIPHER. 50 ML IV SCH (10:37)
[2024-06-06] MEDS: POTASSIUM CHLORIDE 20 MEQ POWDER PACKET PO ONE (13:30)
[2024-06-07] VITALS (46 sets, daily range): BP systolic 75–124; BP diastolic 59–110; TEMP 97.5–98.3; O2SAT 85–99
[2024-06-07 04:45] LABS: BASOPHILS # (AUTO) 0.1 K/uL (0.0-0.2); BASOPHILS % (AUTO) 0.5 % (0.0-2.0); HEMATOCRIT 41 % (39-51); HEMOGLOBIN 12.5 g/dL (13.5-17.5); LYMPHOCYTES # (AUTO) 0.4 K/uL (0.8-4.8); LYMPHOCYTES % (AUTO) 3.2 % (20.0-44.0); MEAN CORPUSCULAR HEMOGLOBIN 21 PG (26.0-33.0); MEAN CORPUSCULAR HGB CONC 30 g/dl (31.0-36.0); MEAN CORPUSCULAR VOLUME 69 fL (80-96); MONOCYTES # (AUTO) 0.9 K/uL (0.1-1.30); MONOCYTES % (AUTO) 6.5 % (2.0-12.0); NEUTROPHILS # (AUTO) 12.6 K/uL (1.8-8.9); NEUTROPHILS % (AUTO) 89.8 % (43.0-81.0); PLATELET COUNT (AUTO) 218 K/uL (150-450); RED BLOOD CELL COUNT(AUTO) 5.93 MIL/uL (4.5-6.0); RED CELL DISTRIBUTION WIDTH 22.3 % (11.5-15.0)
[2024-06-07 05:03] LABS: CALCIUM, SERUM 8.5 mg/dL (8.5-10.1); CREATININE 1.8 mg/dL (0.6-1.3); POTASSIUM 3.3 mmol/L (3.5-5.1)
[2024-06-07 08:08] LABS: ANISOCYTOSIS 2+; HYPOCHROMASIA 3+; LYMPHOCYTES % (MANUAL) 1 % (16-48); MONOCYTES % (MANUAL) 4 % (0-11.0); NEUTROPHILS % (MANUAL) 95 (42-76); PLATELET ESTIMATE ADEQUATE; TARGET CELLS 1+
[2024-06-07 08:09] LABS: OVALOCYTES 1+
[2024-06-07] MEDS: POTASSIUM CHLORIDE 20 MEQ TAB.PRT.SR PO SCH (09:09)
[2024-06-07] MEDS: MAGNESIUM HYDROXIDE 30 ML UDC PO PRN (09:09)
[2024-06-08] VITALS (20 sets, daily range): BP systolic 101–129; BP diastolic 64–111; TEMP 97.2–97.8; O2SAT 89–98
[2024-06-08 05:20] LABS: BASOPHILS % (AUTO) 0.1 % (0.0-2.0); HEMATOCRIT 40 % (39-51); HEMOGLOBIN 12.4 g/dL (13.5-17.5); LYMPHOCYTES # (AUTO) 0.3 K/uL (0.8-4.8); LYMPHOCYTES % (AUTO) 2.4 % (20.0-44.0); MEAN CORPUSCULAR HEMOGLOBIN 21 PG (26.0-33.0); MEAN CORPUSCULAR HGB CONC 31 g/dl (31.0-36.0); MEAN CORPUSCULAR VOLUME 69 fL (80-96); MONOCYTES # (AUTO) 0.9 K/uL (0.1-1.30); MONOCYTES % (AUTO) 6.3 % (2.0-12.0); NEUTROPHILS # (AUTO) 12.9 K/uL (1.8-8.9); NEUTROPHILS % (AUTO) 91.2 % (43.0-81.0); PLATELET COUNT (AUTO) 212 K/uL (150-450); RED CELL DISTRIBUTION WIDTH 22.8 % (11.5-15.0); WHITE BLOOD COUNT (AUTO) 14.2 K/uL (4.3-11.0)
[2024-06-08 05:30] LABS: CALCIUM, SERUM 8.4 mg/dL (8.5-10.1); CREATININE 1.8 mg/dL (0.6-1.3); POTASSIUM 3.5 mmol/L (3.5-5.1)
[2024-06-08] MEDS: SPIRONOLACTONE 25 MG TABLET PO SCH (09:40)
[2024-06-08] MEDS: methylPREDNISolone SOD SUCC 40 MG/ML VIAL IV SCH (11:30)
[2024-06-09] VITALS (16 sets, daily range): BP systolic 108–121; BP diastolic 76–87; TEMP 97.1–97.5; O2SAT 92–99
[2024-06-10] VITALS (19 sets, daily range): BP systolic 107–132; BP diastolic 76–95; TEMP 97.3–98.4; O2SAT 92–100
[2024-06-10 10:50] LABS: EOSINOPHILS # (AUTO) 0.1 K/uL (0.0-0.7); EOSINOPHILS % (AUTO) 0.6 % (0.0-6.0); HEMATOCRIT 42 % (39-51); HEMOGLOBIN 12.7 g/dL (13.5-17.5); LYMPHOCYTES # (AUTO) 1.3 K/uL (0.8-4.8); LYMPHOCYTES % (AUTO) 7.3 % (20.0-44.0); MEAN CORPUSCULAR HEMOGLOBIN 21 PG (26.0-33.0); MEAN CORPUSCULAR HGB CONC 31 g/dl (31.0-36.0); MEAN CORPUSCULAR VOLUME 69 fL (80-96); MONOCYTES # (AUTO) 1.4 K/uL (0.1-1.30); MONOCYTES % (AUTO) 7.9 % (2.0-12.0); NEUTROPHILS # (AUTO) 14.7 K/uL (1.8-8.9); NEUTROPHILS % (AUTO) 84.2 % (43.0-81.0); PLATELET COUNT (AUTO) 228 K/uL (150-450); RED BLOOD CELL COUNT(AUTO) 6.01 MIL/uL (4.5-6.0); RED CELL DISTRIBUTION WIDTH 22.9 % (11.5-15.0); WHITE BLOOD COUNT (AUTO) 17.5 K/uL (4.3-11.0)
[2024-06-10 11:02] LABS: ALBUMIN 2.6 g/dL (3.4-5.0); BILIRUBIN,TOTAL 1.7 mg/dL (0.2-1.0); CALCIUM, SERUM 8.5 mg/dL (8.5-10.1); CREATININE 1.3 mg/dL (0.6-1.3); MAGNESIUM 2.2 mg/dL (1.8-2.4); PHOSPHORUS 2.9 mg/dL (2.5-4.9); POTASSIUM 3.9 mmol/L (3.5-5.1); TOTAL PROTEIN, SERUM 6.7 g/dL (6.4-8.2)
[2024-06-11] VITALS (16 sets, daily range): BP systolic 97–117; BP diastolic 66–95; TEMP 97.3–97.7; O2SAT 92–97
[2024-06-12] VITALS (18 sets, daily range): BP systolic 96–119; BP diastolic 65–91; TEMP 97–98; O2SAT 91–99
[2024-06-13] VITALS (16 sets, daily range): BP systolic 106–118; BP diastolic 67–90; TEMP 97–98; O2SAT 89–99
[2024-06-13] MEDS ORDERED: TRAZODONE 50 MG TABLET PO PRN (02:00)
[2024-06-13 07:50] LABS: CALCIUM, SERUM 8.8 mg/dL (8.5-10.1); CREATININE 1.3 mg/dL (0.6-1.3); POTASSIUM 5.1 mmol/L (3.5-5.1)
[2024-06-13 08:02] LABS: BASOPHILS # (AUTO) 0.1 K/uL (0.0-0.2); BASOPHILS % (AUTO) 0.3 % (0.0-2.0); EOSINOPHILS % (AUTO) 0.2 % (0.0-6.0); HEMATOCRIT 42 % (39-51); HEMOGLOBIN 12.3 g/dL (13.5-17.5); LYMPHOCYTES # (AUTO) 1.2 K/uL (0.8-4.8); LYMPHOCYTES % (AUTO) 5.9 % (20.0-44.0); MEAN CORPUSCULAR HEMOGLOBIN 21 PG (26.0-33.0); MEAN CORPUSCULAR HGB CONC 30 g/dl (31.0-36.0); MEAN CORPUSCULAR VOLUME 71 fL (80-96); MONOCYTES # (AUTO) 1.9 K/uL (0.1-1.30); MONOCYTES % (AUTO) 9.3 % (2.0-12.0); NEUTROPHILS % (AUTO) 84.3 % (43.0-81.0); PLATELET COUNT (AUTO) 172 K/uL (150-450); RED BLOOD CELL COUNT(AUTO) 5.88 MIL/uL (4.5-6.0); RED CELL DISTRIBUTION WIDTH 23.8 % (11.5-15.0); WHITE BLOOD COUNT (AUTO) 20.2 K/uL (4.3-11.0)
[2024-06-13] MEDS: predniSONE 20 MG TABLET PO SCH (08:20)
[2024-06-13 12:23] LABS: ANISOCYTOSIS 1+; HYPOCHROMASIA 1+; LYMPHOCYTES % (MANUAL) 7 % (16-48); MONOCYTES % (MANUAL) 9 % (0-11.0); NEUTROPHILS % (MANUAL) 84 (42-76); PLATELET ESTIMATE ADEQUATE
[2024-06-14] VITALS (12 sets, daily range): BP systolic 107–121; BP diastolic 59–84; TEMP 97.7–98.4; O2SAT 93–100
[2024-06-14] MEDS: TRAZODONE 50 MG TABLET PO PRN (01:31)
[2024-06-15] VITALS (12 sets, daily range): BP systolic 1–105; BP diastolic 78–86; TEMP 98–98.4; O2SAT 92–100
== END 2024-06-15 18:40 | DRG 194 ==
LOC: ER 00:34 → TELE1 03:09 → ICU 03:53 → TELE-TD 05-28 15:44 → TELE1 05-29 22:07 → TELE-TD 05-30 09:15 → TELE1 06-02 11:17 → ICU 06-05 09:49 → TELE1 06-08 10:19 → MEDSG1 06-13 12:23
PROVIDERS: ATTEND Internal Medicine
PROC: 5A09557 Assistance with Respiratory Ventilation, Greater than 96 Consecutive Hours, Continuous Positive Airway Pressure (ICD-10-PCS; principal; 2024-05-27)
DX: I13.0 Hypertensive heart and chronic kidney disease with heart failure and stage 1 through stage 4 chronic kidney disease, or unspecified chronic kidney disease (principal); J96.01 Acute respiratory failure with hypoxia; N17.9 Acute kidney failure, unspecified; I21.A1 Myocardial infarction type 2; E87.20 Acidosis, unspecified; R18.8 Other ascites; E44.0 Moderate protein-calorie malnutrition; K83.1 Obstruction of bile duct; E87.1 Hypo-osmolality and hyponatremia; N18.4 Chronic kidney disease, stage 4 (severe); I42.0 Dilated cardiomyopathy; E88.09 Other disorders of plasma-protein metabolism, not elsewhere classified; I48.92 Unspecified atrial flutter; I48.0 Paroxysmal atrial fibrillation; F15.10 Other stimulant abuse, uncomplicated; D50.9 Iron deficiency anemia, unspecified; I48.91 Unspecified atrial fibrillation; Z59.00 Homelessness unspecified; I50.23 Acute on chronic systolic (congestive) heart failure; Z79.01 Long term (current) use of anticoagulants; Z79.899 Other long term (current) drug therapy; E80.6 Other disorders of bilirubin metabolism; R74.01 Elevation of levels of liver transaminase levels; K76.0 Fatty (change of) liver, not elsewhere classified; K82.8 Other specified diseases of gallbladder; J45.909 Unspecified asthma, uncomplicated; M89.8X9 Other specified disorders of bone, unspecified site; T38.0X5A Adverse effect of glucocorticoids and synthetic analogues, initial encounter; Y92.9 Unspecified place or not applicable; Z91.148 Patient's other noncompliance with medication regimen for other reason; Z87.891 Personal history of nicotine dependence; Z82.49 Family history of ischemic heart disease and other diseases of the circulatory system
CPT/HCPCS: 36415; 36600; 71045-TC; 76700-TC; 76705-TC; 80048-TC; 80053-TC; 80076-TC; 81001; 82550-TC; 82553; 82570-TC; 82803-TC; 83605-TC; 83735-TC; 83880; 83970; 84100-TC; 84155; 84165; 84300-TC; 84484-TC; 85025-TC; 85610-TC; 87040-TC; 87081-TC; 93307-TC; 93970-TC; 94660; 94760-TC; 94762-TC; 94799-TC; 97110-TC; 97112-TC; 97116-TC; 97530-TC; 97535-TC; 98960; A4216; A4223; A6403; G0378; G0480; J0282; J0696; J1940; J2470; J2919; J3475; J3480; J3490; J7030; J7040; J7050; J7060

== ENCOUNTER 2024-09-13 19:23 | Inpatient (IN) | payer MEDICAID, OTHER ==
[~2024-09-13] VITALS: Ht 177.8 cm; Wt 90.7 kg
[~2024-09-13 19:23] MED LIST changes: -AMBR10TA5 PO; +DILT240C88 PO; +LOSA25TA27 PO; -METO2.5T7 PO; +METO25TA20 PO; +SPIR25TA6 PO
[2024-09-13] MEDS ORDERED: FUROSEMIDE 40 MG/4 ML VIAL ONE (20:16)
[2024-09-13] MEDS ORDERED: methylPREDNISolone SOD SUCC 125 MG/2ML VIAL ONE (20:16)
[2024-09-13] MEDS: FUROSEMIDE 40 MG/4 ML VIAL IV ONE (20:30)
[2024-09-13] MEDS ORDERED: IPRATROPIUM NEB FS 0.5 MG/2.5 ML AMPUL.NEB ONE (20:40)
[2024-09-13] MEDS ORDERED: ALBUTEROL FS 2.5 MG/3 ML VIAL.NEB ONE (20:40)
[2024-09-13] MEDS: IPRATROPIUM NEB FS 0.5 MG/2.5 ML AMPUL.NEB NEB ONE (20:41)
[2024-09-13] MEDS: ALBUTEROL FS 2.5 MG/3 ML VIAL.NEB CONTNEB ONE (20:41)
[2024-09-13 20:46] VITALS: O2SAT 92
[2024-09-13 21:58] VITALS: O2SAT 98
[2024-09-13 22:09] LABS: EOSINOPHILS # (AUTO) 0.1 K/uL (0.0-0.7); HEMATOCRIT 39 % (39-51); MEAN CORPUSCULAR VOLUME 73 fL (80-96); MONOCYTES # (AUTO) 0.5 K/uL (0.1-1.30); RED BLOOD CELL COUNT(AUTO) 5.31 MIL/uL (4.5-6.0)
[2024-09-13] MEDS: methylPREDNISolone SOD SUCC 125 MG/2ML VIAL IV ONE (22:11)
[2024-09-13 22:17] LABS: BASOPHILS % (AUTO) 0.7 % (0.0-2.0); EOSINOPHILS % (AUTO) 1.3 % (0.0-6.0); HEMOGLOBIN 11.7 g/dL (13.5-17.5); LYMPHOCYTES % (AUTO) 16.7 % (20.0-44.0); MEAN CORPUSCULAR HEMOGLOBIN 22 PG (26.0-33.0); MEAN CORPUSCULAR HGB CONC 30 g/dl (31.0-36.0); MONOCYTES % (AUTO) 9.1 % (2.0-12.0); NEUTROPHILS # (AUTO) 4.3 K/uL (1.8-8.9); NEUTROPHILS % (AUTO) 72.2 % (43.0-81.0); PLATELET COUNT (AUTO) 120 K/uL (150-450)
[2024-09-13 22:45] LABS: CALCIUM, SERUM 8.6 mg/dL (8.5-10.1); CREATININE 1.6 mg/dL (0.6-1.3); POTASSIUM 4.3 mmol/L (3.5-5.1)
[2024-09-13 22:50] LABS: ALBUMIN 3.5 g/dL (3.4-5.0); BILIRUBIN,DIRECT 1.3 mg/dL (0.0-0.2); BILIRUBIN,TOTAL 4.3 mg/dL (0.2-1.0); TOTAL PROTEIN, SERUM 7.2 g/dL (6.4-8.2)
[2024-09-13 23:00] LABS: ANISOCYTOSIS 1+; LYMPHOCYTES % (MANUAL) 19 % (16-48); MONOCYTES % (MANUAL) 7 % (0-11.0); NEUTROPHILS % (MANUAL) 74 (42-76); PLATELET ESTIMATE DECREASED
[2024-09-13 23:01] LABS: HYPOCHROMASIA 1+
[2024-09-13 23:20] VITALS: BP 148/105; TEMP 98.2; O2SAT 94
[2024-09-13 23:25] VITALS: BP 148/105; TEMP 98.2; O2SAT 94
[2024-09-13] MEDS ORDERED: MAG HYDROX/AL HYDROX/SIMETH 30 ML UDC PO PRN (23:30)
[2024-09-13] MEDS ORDERED: MAGNESIUM HYDROXIDE 30 ML UDC PO PRN (23:30)
[2024-09-13] MEDS ORDERED: ONDANSETRON HCL/PF 4 MG/2 ML VIAL IVP PRN (23:30)
[2024-09-13] MEDS ORDERED: Z GUARD REMEDY 4 OZ OINT TP PRN (23:30)
[2024-09-14] VITALS (14 sets, daily range): BP systolic 84–148; BP diastolic 50–105; TEMP 97.3–98.8; O2SAT 85–95
[2024-09-14] MEDS: ENOXAPARIN SODIUM 40 MG/0.4 ML DISP.SYRIN SQ SCH (00:04)
[2024-09-14] MEDS: FUROSEMIDE 40 MG/4 ML VIAL IV SCH (08:23)
[2024-09-14] MEDS: DILTIAZEM HCL CD 240 MG PO SCH (08:24)
[2024-09-14] MEDS: LOSARTAN POTASSIUM 25 MG TABLET PO SCH (08:24)
[2024-09-14] MEDS: SPIRONOLACTONE 25 MG TABLET PO SCH (08:24)
[2024-09-14] MEDS: METOPROLOL TARTRATE 25 MG TABLET PO SCH (08:24)
[2024-09-14] MEDS ORDERED: IOHEXOL-350 100 ML VIAL IV ONE (08:44)
[2024-09-14] MEDS ORDERED: IV NS 0.9% 250 ML IV ONE (08:46)
[2024-09-14] MEDS ORDERED: APIXABAN 5 MG TABLET PO SCH (09:00)
[2024-09-14] MEDS ORDERED: AMBR10TA PO (09:20)
[2024-09-14] MEDS ORDERED: GUAI180L4 PO (09:20)
[2024-09-14 12:35] LABS: BASOPHILS % (AUTO) 0.3 % (0.0-2.0); HEMATOCRIT 40 % (39-51); HEMOGLOBIN 12.3 g/dL (13.5-17.5); LYMPHOCYTES # (AUTO) 0.5 K/uL (0.8-4.8); MEAN CORPUSCULAR HEMOGLOBIN 22 PG (26.0-33.0); MEAN CORPUSCULAR HGB CONC 31 g/dl (31.0-36.0); MEAN CORPUSCULAR VOLUME 73 fL (80-96); MONOCYTES % (AUTO) 1.3 % (2.0-12.0); NEUTROPHILS % (AUTO) 85.4 % (43.0-81.0); PLATELET COUNT (AUTO) 136 K/uL (150-450); RED BLOOD CELL COUNT(AUTO) 5.53 MIL/uL (4.5-6.0); RED CELL DISTRIBUTION WIDTH 27.8 % (11.5-15.0); WHITE BLOOD COUNT (AUTO) 3.5 K/uL (4.3-11.0)
[2024-09-14 13:16] LABS: ALBUMIN 3.4 g/dL (3.4-5.0); BILIRUBIN,DIRECT 1.3 mg/dL (0.0-0.2); BILIRUBIN,TOTAL 3.5 mg/dL (0.2-1.0); CALCIUM, SERUM 8.7 mg/dL (8.5-10.1); CREATININE 1.8 mg/dL (0.6-1.3); MAGNESIUM 2.1 mg/dL (1.8-2.4); PHOSPHORUS 3.8 mg/dL (2.5-4.9); POTASSIUM 4.5 mmol/L (3.5-5.1); TOTAL PROTEIN, SERUM 7.3 g/dL (6.4-8.2)
[2024-09-14] MEDS: TADALAFIL 20 MG PO SCH (13:54)
[2024-09-14] MEDS: ACETAMINOPHEN 325 MG TABLET PO PRN (15:03)
[2024-09-14 20:51] LABS: MetHb 0.3 % (0.0-1.5); SITE, ABG LEFT RADIAL
[2024-09-14 21:19] LABS: ABG BASE EXCESS -3.4 mmol/L (-2.0-3.0); ABG OXYGEN SATURATION 83.1 % (94.0-98.0); ABG PCO2 31.5 mmHg (35.0-48.0); ABG PH 7.426 (7.350-7.450); ABG PO2 48.8 mmHg (83.0-108.0); ABG TOTAL HEMOGLOBIN 10.7 G/dL (13.5-17.5); COHb 0.3 % (0.5-1.5); O2Hb 82.6 % (94.0-97.0)
[2024-09-14] MEDS: IV NS 0.9% 250 ML BAG IV ONE (21:23)
[2024-09-14] MEDS: NOREPINEPHRINE 8MG/250ML RTU 250 ML IV ONE (21:31)
[2024-09-14] MEDS: NOREPINEPHRINE 8 MG in IV D5W 242 ML IV PRN (21:34)
[2024-09-15] VITALS (62 sets, daily range): BP systolic 82–134; BP diastolic 42–108; TEMP 97.8–98.8; O2SAT 75–99
[2024-09-15] MEDS: APIXABAN 5 MG TABLET PO SCH (10:27)
[2024-09-15] MEDS: AMBRISENTAN 10 MG PO SCH (10:28)
[2024-09-15] MEDS ORDERED: FUROSEMIDE 40 MG/4 ML VIAL IV SCH (13:00)
[2024-09-15] MEDS: SPIRONOLACTONE 25 MG TABLET PO SCH (13:39)
[2024-09-15] MEDS: FUROSEMIDE 40 MG TABLET PO SCH (13:40)
[2024-09-16] VITALS (26 sets, daily range): BP systolic 90–108; BP diastolic 60–87; TEMP 97–97.8; O2SAT 87–97
[2024-09-16] MEDS: AMBRISENTAN 10 MG PO SCH (08:15)
[2024-09-16 10:51] LABS: BASOPHILS % (AUTO) 0.3 % (0.0-2.0); EOSINOPHILS # (AUTO) 0.1 K/uL (0.0-0.7); LYMPHOCYTES # (AUTO) 0.8 K/uL (0.8-4.8); MONOCYTES % (AUTO) 10.8 % (2.0-12.0); RED BLOOD CELL COUNT(AUTO) 5.68 MIL/uL (4.5-6.0)
[2024-09-16 10:56] LABS: EOSINOPHILS % (AUTO) 1.3 % (0.0-6.0); HEMATOCRIT 41 % (39-51); HEMOGLOBIN 12.3 g/dL (13.5-17.5); LYMPHOCYTES % (AUTO) 9.9 % (20.0-44.0); MEAN CORPUSCULAR HEMOGLOBIN 22 PG (26.0-33.0); MEAN CORPUSCULAR HGB CONC 30 g/dl (31.0-36.0); MEAN CORPUSCULAR VOLUME 73 fL (80-96); MONOCYTES # (AUTO) 0.9 K/uL (0.1-1.30); NEUTROPHILS # (AUTO) 6.1 K/uL (1.8-8.9); NEUTROPHILS % (AUTO) 77.7 % (43.0-81.0); PLATELET COUNT (AUTO) 142 K/uL (150-450); RED CELL DISTRIBUTION WIDTH 27.7 % (11.5-15.0); WHITE BLOOD COUNT (AUTO) 7.9 K/uL (4.3-11.0)
[2024-09-16 11:13] LABS: ALBUMIN 2.9 g/dL (3.4-5.0); BILIRUBIN,DIRECT 0.8 mg/dL (0.0-0.2); BILIRUBIN,TOTAL 1.7 mg/dL (0.2-1.0); CREATININE 1.4 mg/dL (0.6-1.3); POTASSIUM 3.9 mmol/L (3.5-5.1); TOTAL PROTEIN, SERUM 6.3 g/dL (6.4-8.2)
[2024-09-16 11:45] LABS: ANISOCYTOSIS 1+; PLATELET ESTIMATE DECREASED
[2024-09-17] VITALS (19 sets, daily range): BP systolic 86–118; BP diastolic 62–85; TEMP 97.5–98.4; O2SAT 89–95
[2024-09-18] VITALS (25 sets, daily range): BP systolic 65–109; BP diastolic 41–82; TEMP 97.4–98.5; O2SAT 84–99
[2024-09-18] MEDS: FUROSEMIDE 40 MG TABLET PO SCH (08:24)
[2024-09-18 10:54] LABS: BASOPHILS % (AUTO) 0.8 % (0.0-2.0); EOSINOPHILS # (AUTO) 0.2 K/uL (0.0-0.7); EOSINOPHILS % (AUTO) 3.3 % (0.0-6.0); HEMATOCRIT 39 % (39-51); HEMOGLOBIN 11.9 g/dL (13.5-17.5); LYMPHOCYTES # (AUTO) 0.6 K/uL (0.8-4.8); LYMPHOCYTES % (AUTO) 13.1 % (20.0-44.0); MEAN CORPUSCULAR HEMOGLOBIN 22 PG (26.0-33.0); MEAN CORPUSCULAR HGB CONC 30 g/dl (31.0-36.0); MEAN CORPUSCULAR VOLUME 72 fL (80-96); MONOCYTES # (AUTO) 0.7 K/uL (0.1-1.30); MONOCYTES % (AUTO) 14.2 % (2.0-12.0); NEUTROPHILS # (AUTO) 3.3 K/uL (1.8-8.9); NEUTROPHILS % (AUTO) 68.6 % (43.0-81.0); PLATELET COUNT (AUTO) 188 K/uL (150-450); RED BLOOD CELL COUNT(AUTO) 5.46 MIL/uL (4.5-6.0); RED CELL DISTRIBUTION WIDTH 27.2 % (11.5-15.0); WHITE BLOOD COUNT (AUTO) 4.8 K/uL (4.3-11.0)
[2024-09-18 11:05] LABS: CALCIUM, SERUM 7.8 mg/dL (8.5-10.1); CREATININE 1.3 mg/dL (0.6-1.3); POTASSIUM 3.7 mmol/L (3.5-5.1)
[2024-09-18] MEDS: METOPROLOL TARTRATE 25 MG TABLET PO SCH (12:47)
[2024-09-18] MEDS: IV NS 0.9% 1,000 ML IV ONE (13:01)
[2024-09-19] VITALS (30 sets, daily range): BP systolic 90–135; BP diastolic 63–92; TEMP 97.3–98; O2SAT 88–100
[2024-09-19] MEDS ORDERED: PROPOFOL 100 ML IV PRN (02:30)
[2024-09-19] MEDS: BUMETANIDE INJ 4 MG in IV D5W 24 ML IV ONE (11:09)
[2024-09-20] VITALS (26 sets, daily range): BP systolic 91–131; BP diastolic 41–96; TEMP 98–98.3; O2SAT 91–98
[2024-09-20 04:40] LABS: BASOPHILS % (AUTO) 0.7 % (0.0-2.0); EOSINOPHILS # (AUTO) 0.2 K/uL (0.0-0.7); EOSINOPHILS % (AUTO) 4.3 % (0.0-6.0); HEMATOCRIT 36 % (39-51); HEMOGLOBIN 10.8 g/dL (13.5-17.5); LYMPHOCYTES # (AUTO) 1.1 K/uL (0.8-4.8); LYMPHOCYTES % (AUTO) 22.1 % (20.0-44.0); MEAN CORPUSCULAR HEMOGLOBIN 22 PG (26.0-33.0); MEAN CORPUSCULAR HGB CONC 30 g/dl (31.0-36.0); MEAN CORPUSCULAR VOLUME 73 fL (80-96); MONOCYTES # (AUTO) 0.6 K/uL (0.1-1.30); MONOCYTES % (AUTO) 13.4 % (2.0-12.0); NEUTROPHILS # (AUTO) 2.9 K/uL (1.8-8.9); NEUTROPHILS % (AUTO) 59.5 % (43.0-81.0); PLATELET COUNT (AUTO) 165 K/uL (150-450); RED BLOOD CELL COUNT(AUTO) 4.89 MIL/uL (4.5-6.0); RED CELL DISTRIBUTION WIDTH 26.9 % (11.5-15.0); WHITE BLOOD COUNT (AUTO) 4.8 K/uL (4.3-11.0)
[2024-09-20 04:55] LABS: CALCIUM, SERUM 8.2 mg/dL (8.5-10.1); CREATININE 1.3 mg/dL (0.6-1.3); POTASSIUM 3.8 mmol/L (3.5-5.1)
[2024-09-20 05:46] LABS: EOSINOPHILS % (MANUAL) 6 % (0-4); LYMPHOCYTES % (MANUAL) 20 % (16-48); MONOCYTES % (MANUAL) 16 % (0-11.0); NEUTROPHILS % (MANUAL) 58 (42-76)
[2024-09-20 05:47] LABS: ANISOCYTOSIS 1+; HYPOCHROMASIA 2+; OVALOCYTES 1+; PLATELET ESTIMATE ADEQUATE; TEAR DROP CELLS 1+
[2024-09-20] MEDS: BUMETANIDE INJ 4 MG in IV D5W 24 ML IV ONE (10:34)
[2024-09-21] VITALS (24 sets, daily range): BP systolic 86–122; BP diastolic 58–95; TEMP 97.4–99.3; O2SAT 82–97
[2024-09-21 04:47] LABS: CALCIUM, SERUM 8.4 mg/dL (8.5-10.1); CREATININE 1.3 mg/dL (0.6-1.3); POTASSIUM 3.9 mmol/L (3.5-5.1)
[2024-09-21] MEDS: FUROSEMIDE 40 MG/4 ML VIAL IV SCH (10:01)
[2024-09-21] MEDS: IPRATROPIUM NEB FS 0.5 MG/2.5 ML AMPUL.NEB NEB PRN (23:41)
[2024-09-21] MEDS: ALBUTEROL FS 2.5 MG/3 ML VIAL.NEB NEB PRN (23:41)
[2024-09-22] VITALS (30 sets, daily range): BP systolic 72–147; BP diastolic 44–124; TEMP 97.6–98.1; O2SAT 88–96
[2024-09-22 04:45] LABS: CALCIUM, SERUM 8.3 mg/dL (8.5-10.1); CREATININE 1.4 mg/dL (0.6-1.3); POTASSIUM 3.9 mmol/L (3.5-5.1)
[2024-09-22 08:20] LABS: BASOPHILS # (AUTO) 0.1 K/uL (0.0-0.2); EOSINOPHILS # (AUTO) 0.1 K/uL (0.0-0.7); EOSINOPHILS % (AUTO) 2.2 % (0.0-6.0); HEMATOCRIT 35 % (39-51); HEMOGLOBIN 10.7 g/dL (13.5-17.5); LYMPHOCYTES # (AUTO) 0.8 K/uL (0.8-4.8); LYMPHOCYTES % (AUTO) 15.4 % (20.0-44.0); MEAN CORPUSCULAR HEMOGLOBIN 22 PG (26.0-33.0); MEAN CORPUSCULAR HGB CONC 31 g/dl (31.0-36.0); MEAN CORPUSCULAR VOLUME 72 fL (80-96); MONOCYTES # (AUTO) 0.7 K/uL (0.1-1.30); MONOCYTES % (AUTO) 13.2 % (2.0-12.0); NEUTROPHILS # (AUTO) 3.5 K/uL (1.8-8.9); NEUTROPHILS % (AUTO) 68.2 % (43.0-81.0); PLATELET COUNT (AUTO) 165 K/uL (150-450); RED CELL DISTRIBUTION WIDTH 27.3 % (11.5-15.0); WHITE BLOOD COUNT (AUTO) 5.1 K/uL (4.3-11.0)
[2024-09-22 09:10] LABS: BASOPHILS % (MANUAL) 0 % (0.0-2.0); EOSINOPHILS % (MANUAL) 4 % (0-4); LYMPHOCYTES % (MANUAL) 17 % (16-48); MONOCYTES % (MANUAL) 10 % (0-11.0); NEUTROPHILS % (MANUAL) 69 (42-76); PLATELET ESTIMATE ADEQUATE
[2024-09-22 09:11] LABS: ANISOCYTOSIS 2+; OVALOCYTES 1+
[2024-09-23] VITALS (22 sets, daily range): BP systolic 73–132; BP diastolic 42–83; TEMP 97.5–98.1; O2SAT 88–97
[2024-09-23 04:44] LABS: BASOPHILS % (AUTO) 0.9 % (0.0-2.0); EOSINOPHILS # (AUTO) 0.1 K/uL (0.0-0.7); EOSINOPHILS % (AUTO) 2.9 % (0.0-6.0); HEMATOCRIT 35 % (39-51); HEMOGLOBIN 10.9 g/dL (13.5-17.5); LYMPHOCYTES # (AUTO) 0.9 K/uL (0.8-4.8); LYMPHOCYTES % (AUTO) 22.9 % (20.0-44.0); MEAN CORPUSCULAR HEMOGLOBIN 22 PG (26.0-33.0); MEAN CORPUSCULAR HGB CONC 31 g/dl (31.0-36.0); MEAN CORPUSCULAR VOLUME 71 fL (80-96); MONOCYTES # (AUTO) 0.5 K/uL (0.1-1.30); MONOCYTES % (AUTO) 13.2 % (2.0-12.0); NEUTROPHILS # (AUTO) 2.4 K/uL (1.8-8.9); NEUTROPHILS % (AUTO) 60.1 % (43.0-81.0); PLATELET COUNT (AUTO) 161 K/uL (150-450); RED BLOOD CELL COUNT(AUTO) 4.93 MIL/uL (4.5-6.0); RED CELL DISTRIBUTION WIDTH 27.2 % (11.5-15.0)
[2024-09-23 04:46] LABS: CALCIUM, SERUM 8.3 mg/dL (8.5-10.1); CREATININE 1.3 mg/dL (0.6-1.3); POTASSIUM 3.8 mmol/L (3.5-5.1)
[2024-09-23 05:26] LABS: EOSINOPHILS % (MANUAL) 2 % (0-4); LYMPHOCYTES % (MANUAL) 21 % (16-48); MONOCYTES % (MANUAL) 7 % (0-11.0); NEUTROPHILS % (MANUAL) 70 (42-76); PLATELET ESTIMATE ADEQUATE
[2024-09-23 05:27] LABS: ANISOCYTOSIS 2+; HYPOCHROMASIA 1+; TARGET CELLS 1+
[2024-09-23 11:09] LABS: ABG BASE EXCESS -0.6 mmol/L (-2.0-3.0); ABG OXYGEN SATURATION 92.2 % (94.0-98.0); ABG PCO2 31.7 mmHg (35.0-48.0); ABG PH 7.467 (7.350-7.450); ABG PO2 64.6 mmHg (83.0-108.0); ABG TOTAL HEMOGLOBIN 12.3 G/dL (13.5-17.5); COHb 0.8 % (0.5-1.5); MetHb 0.2 % (0.0-1.5); O2Hb 91.3 % (94.0-97.0)
[2024-09-23] MEDS: FUROSEMIDE 40 MG/4 ML VIAL IV SCH (11:19)
[2024-09-24] VITALS: BP 118/79; TEMP 97.9; O2SAT 93
[2024-09-24 04:00] VITALS: BP 116/77; TEMP 97.7; O2SAT 94
[2024-09-24 08:00] VITALS: BP 106/76; TEMP 97.7; O2SAT 91
[2024-09-24 08:15] LABS: BASOPHILS % (AUTO) 0.8 % (0.0-2.0); EOSINOPHILS # (AUTO) 0.1 K/uL (0.0-0.7); EOSINOPHILS % (AUTO) 2.8 % (0.0-6.0); HEMATOCRIT 34 % (39-51); HEMOGLOBIN 10.4 g/dL (13.5-17.5); LYMPHOCYTES # (AUTO) 0.8 K/uL (0.8-4.8); LYMPHOCYTES % (AUTO) 20.8 % (20.0-44.0); MEAN CORPUSCULAR HEMOGLOBIN 22 PG (26.0-33.0); MEAN CORPUSCULAR HGB CONC 31 g/dl (31.0-36.0); MEAN CORPUSCULAR VOLUME 72 fL (80-96); MONOCYTES # (AUTO) 0.5 K/uL (0.1-1.30); MONOCYTES % (AUTO) 13.7 % (2.0-12.0); NEUTROPHILS # (AUTO) 2.4 K/uL (1.8-8.9); NEUTROPHILS % (AUTO) 61.9 % (43.0-81.0); PLATELET COUNT (AUTO) 160 K/uL (150-450); RED BLOOD CELL COUNT(AUTO) 4.72 MIL/uL (4.5-6.0); RED CELL DISTRIBUTION WIDTH 27.5 % (11.5-15.0); WHITE BLOOD COUNT (AUTO) 3.9 K/uL (4.3-11.0)
[2024-09-24 08:16] LABS: CALCIUM, SERUM 8.4 mg/dL (8.5-10.1); CREATININE 1.4 mg/dL (0.6-1.3); POTASSIUM 3.9 mmol/L (3.5-5.1)
[2024-09-24 10:04] LABS: BASOPHILS % (MANUAL) 0 % (0.0-2.0); EOSINOPHILS % (MANUAL) 3 % (0-4); LYMPHOCYTES % (MANUAL) 21 % (16-48); MONOCYTES % (MANUAL) 10 % (0-11.0); NEUTROPHILS % (MANUAL) 66 (42-76); PLATELET ESTIMATE ADEQUATE
[2024-09-24 10:05] LABS: ANISOCYTOSIS 2+; HYPOCHROMASIA 1+
[2024-09-24 12:00] VITALS: BP 91/56; TEMP 97.3; O2SAT 90
[2024-09-24 16:00] VITALS: BP 101/67; TEMP 97.7; O2SAT 91
[2024-09-24 20:00] VITALS: BP 101/72; TEMP 98.1; O2SAT 91
[2024-09-25] VITALS (7 sets, daily range): BP systolic 81–114; BP diastolic 58–78; TEMP 97.3–98.5; O2SAT 92–100
[2024-09-25 06:47] LABS: BASOPHILS % (AUTO) 0.8 % (0.0-2.0); EOSINOPHILS # (AUTO) 0.1 K/uL (0.0-0.7); EOSINOPHILS % (AUTO) 2.6 % (0.0-6.0); HEMATOCRIT 33 % (39-51); HEMOGLOBIN 10.1 g/dL (13.5-17.5); LYMPHOCYTES # (AUTO) 0.9 K/uL (0.8-4.8); LYMPHOCYTES % (AUTO) 24.7 % (20.0-44.0); MEAN CORPUSCULAR HEMOGLOBIN 22 PG (26.0-33.0); MEAN CORPUSCULAR HGB CONC 31 g/dl (31.0-36.0); MEAN CORPUSCULAR VOLUME 71 fL (80-96); MONOCYTES # (AUTO) 0.4 K/uL (0.1-1.30); MONOCYTES % (AUTO) 11.5 % (2.0-12.0); NEUTROPHILS # (AUTO) 2.3 K/uL (1.8-8.9); NEUTROPHILS % (AUTO) 60.4 % (43.0-81.0); PLATELET COUNT (AUTO) 162 K/uL (150-450); RED BLOOD CELL COUNT(AUTO) 4.64 MIL/uL (4.5-6.0); RED CELL DISTRIBUTION WIDTH 27.6 % (11.5-15.0); WHITE BLOOD COUNT (AUTO) 3.8 K/uL (4.3-11.0)
[2024-09-25 07:05] LABS: CALCIUM, SERUM 8.7 mg/dL (8.5-10.1); CREATININE 1.4 mg/dL (0.6-1.3); POTASSIUM 4.1 mmol/L (3.5-5.1)
[2024-09-25 08:11] LABS: ANISOCYTOSIS 2+; HYPOCHROMASIA 1+; PLATELET ESTIMATE ADEQUATE
[2024-09-25 08:12] LABS: OVALOCYTES 1+
[2024-09-26] VITALS: BP 105/70; TEMP 98.5; O2SAT 92
[2024-09-26 04:00] VITALS: BP 107/79; TEMP 98.9; O2SAT 94
[2024-09-26 07:44] LABS: BASOPHILS % (AUTO) 0.7 % (0.0-2.0); EOSINOPHILS # (AUTO) 0.1 K/uL (0.0-0.7); EOSINOPHILS % (AUTO) 2.6 % (0.0-6.0); HEMATOCRIT 33 % (39-51); HEMOGLOBIN 10.2 g/dL (13.5-17.5); LYMPHOCYTES # (AUTO) 0.9 K/uL (0.8-4.8); LYMPHOCYTES % (AUTO) 22.9 % (20.0-44.0); MEAN CORPUSCULAR HEMOGLOBIN 22 PG (26.0-33.0); MEAN CORPUSCULAR HGB CONC 31 g/dl (31.0-36.0); MEAN CORPUSCULAR VOLUME 71 fL (80-96); MONOCYTES # (AUTO) 0.4 K/uL (0.1-1.30); MONOCYTES % (AUTO) 11.5 % (2.0-12.0); NEUTROPHILS # (AUTO) 2.4 K/uL (1.8-8.9); NEUTROPHILS % (AUTO) 62.3 % (43.0-81.0); PLATELET COUNT (AUTO) 161 K/uL (150-450); RED CELL DISTRIBUTION WIDTH 27.4 % (11.5-15.0); WHITE BLOOD COUNT (AUTO) 3.8 K/uL (4.3-11.0)
[2024-09-26 07:58] LABS: CALCIUM, SERUM 8.4 mg/dL (8.5-10.1); CREATININE 1.3 mg/dL (0.6-1.3); POTASSIUM 3.9 mmol/L (3.5-5.1)
[2024-09-26 08:00] VITALS: BP 110/73; TEMP 97.9; O2SAT 94
[2024-09-26 09:04] LABS: EOSINOPHILS % (MANUAL) 3 % (0-4); LYMPHOCYTES % (MANUAL) 21 % (16-48); MONOCYTES % (MANUAL) 9 % (0-11.0); NEUTROPHILS % (MANUAL) 67 (42-76); PLATELET ESTIMATE ADEQUATE
[2024-09-26 09:05] LABS: ANISOCYTOSIS 2+; HYPOCHROMASIA 1+
[2024-09-26 09:07] LABS: OVALOCYTES 1+
[2024-09-26 12:00] VITALS: BP 94/72; TEMP 97.7; O2SAT 94
[2024-09-26 16:00] VITALS: BP 96/55; TEMP 98.2; O2SAT 93
[2024-09-26 20:00] VITALS: BP 102/64; TEMP 98.1; O2SAT 93
[2024-09-27] VITALS: BP 102/77; TEMP 98.5; O2SAT 93
[2024-09-27 04:00] VITALS: BP 124/75; TEMP 98.5; O2SAT 93
[2024-09-27 07:08] LABS: BASOPHILS # (AUTO) 0.1 K/uL (0.0-0.2); BASOPHILS % (AUTO) 1.6 % (0.0-2.0); EOSINOPHILS # (AUTO) 0.1 K/uL (0.0-0.7); EOSINOPHILS % (AUTO) 2.8 % (0.0-6.0); HEMATOCRIT 33 % (39-51); LYMPHOCYTES # (AUTO) 0.7 K/uL (0.8-4.8); LYMPHOCYTES % (AUTO) 17.2 % (20.0-44.0); MEAN CORPUSCULAR HEMOGLOBIN 22 PG (26.0-33.0); MEAN CORPUSCULAR HGB CONC 31 g/dl (31.0-36.0); MEAN CORPUSCULAR VOLUME 71 fL (80-96); MONOCYTES # (AUTO) 0.4 K/uL (0.1-1.30); MONOCYTES % (AUTO) 11.2 % (2.0-12.0); NEUTROPHILS # (AUTO) 2.7 K/uL (1.8-8.9); NEUTROPHILS % (AUTO) 67.2 % (43.0-81.0); PLATELET COUNT (AUTO) 150 K/uL (150-450); RED BLOOD CELL COUNT(AUTO) 4.56 MIL/uL (4.5-6.0); RED CELL DISTRIBUTION WIDTH 27.1 % (11.5-15.0)
[2024-09-27 07:26] LABS: CALCIUM, SERUM 8.3 mg/dL (8.5-10.1); CREATININE 1.5 mg/dL (0.6-1.3); POTASSIUM 4.1 mmol/L (3.5-5.1)
[2024-09-27 08:00] VITALS: BP 107/80; TEMP 97.5; O2SAT 93
[2024-09-27 12:00] VITALS: BP 94/57; TEMP 97.7; O2SAT 95
[2024-09-27 16:00] VITALS: BP 94/71; TEMP 97.7; O2SAT 95
[2024-09-27 20:00] VITALS: BP 112/84; TEMP 98.8; O2SAT 97
[2024-09-28] VITALS (8 sets, daily range): BP systolic 94–122; BP diastolic 55–75; TEMP 97.5–98.2; O2SAT 92–100
[2024-09-29] VITALS (13 sets, daily range): BP systolic 104–116; BP diastolic 73–77; TEMP 97.9–209.5; O2SAT 89–100
[2024-09-29 07:57] LABS: EOSINOPHILS # (AUTO) 0.1 K/uL (0.0-0.7); HEMOGLOBIN 9.9 g/dL (13.5-17.5); MEAN CORPUSCULAR HEMOGLOBIN 22 PG (26.0-33.0); MONOCYTES # (AUTO) 0.4 K/uL (0.1-1.30); RED CELL DISTRIBUTION WIDTH 26.5 % (11.5-15.0)
[2024-09-29 08:08] LABS: ALBUMIN 2.9 g/dL (3.4-5.0); BILIRUBIN,TOTAL 1.3 mg/dL (0.2-1.0); CREATININE 1.4 mg/dL (0.6-1.3); MAGNESIUM 2.2 mg/dL (1.8-2.4); PHOSPHORUS 3.9 mg/dL (2.5-4.9); TOTAL PROTEIN, SERUM 6.1 g/dL (6.4-8.2)
[2024-09-29 08:13] LABS: BASOPHILS % (AUTO) 1.1 % (0.0-2.0); EOSINOPHILS % (AUTO) 2.9 % (0.0-6.0); HEMATOCRIT 33 % (39-51); LYMPHOCYTES % (AUTO) 24.6 % (20.0-44.0); MEAN CORPUSCULAR HGB CONC 30 g/dl (31.0-36.0); MEAN CORPUSCULAR VOLUME 72 fL (80-96); MONOCYTES % (AUTO) 10.8 % (2.0-12.0); NEUTROPHILS # (AUTO) 2.4 K/uL (1.8-8.9); NEUTROPHILS % (AUTO) 60.6 % (43.0-81.0); PLATELET COUNT (AUTO) 146 K/uL (150-450); RED BLOOD CELL COUNT(AUTO) 4.56 MIL/uL (4.5-6.0); WHITE BLOOD COUNT (AUTO) 3.9 K/uL (4.3-11.0)
[2024-09-29 09:21] LABS: BASOPHILS % (MANUAL) 0 % (0.0-2.0); EOSINOPHILS % (MANUAL) 1 % (0-4); HYPOCHROMASIA 1+; LYMPHOCYTES % (MANUAL) 25 % (16-48); MONOCYTES % (MANUAL) 12 % (0-11.0); NEUTROPHILS % (MANUAL) 62 (42-76); PLATELET ESTIMATE DECREASED
[2024-09-29 09:22] LABS: ANISOCYTOSIS 2+
[2024-09-29] MEDS: IPRATROPIUM NEB FS 0.5 MG/2.5 ML AMPUL.NEB NEB SCH (09:41)
[2024-09-29] MEDS: ALBUTEROL FS 2.5 MG/3 ML VIAL.NEB NEB SCH ×2 (09:41→19:52)
[2024-09-30] VITALS (11 sets, daily range): BP systolic 95–116; BP diastolic 68–79; TEMP 97.5–97.9; O2SAT 91–96
== END 2024-09-30 18:31 | disposition short-term general hospital (02) | DRG 194 ==
LOC: ER 19:28 → TELE 22:07 → ICU 09-14 21:04 → TELE-TD 09-17 12:49 → TELE1 09-18 09:39 → ICU 09-18 13:55 → TELE-TD 09-23 11:37 → TELE1 09-24 10:46 → MEDSG1 09-30 08:40
PROC: 5A09457 Assistance with Respiratory Ventilation, 24-96 Consecutive Hours, Continuous Positive Airway Pressure (ICD-10-PCS; principal; 2024-09-15)
DX: I13.0 Hypertensive heart and chronic kidney disease with heart failure and stage 1 through stage 4 chronic kidney disease, or unspecified chronic kidney disease (principal); J96.21 Acute and chronic respiratory failure with hypoxia; I31.39 Other pericardial effusion (noninflammatory); D69.6 Thrombocytopenia, unspecified; I27.20 Pulmonary hypertension, unspecified; I82.611 Acute embolism and thrombosis of superficial veins of right upper extremity; N17.9 Acute kidney failure, unspecified; I50.23 Acute on chronic systolic (congestive) heart failure; I48.91 Unspecified atrial fibrillation; N18.9 Chronic kidney disease, unspecified; D50.9 Iron deficiency anemia, unspecified; F15.11 Other stimulant abuse, in remission; Z91.199 Patient's noncompliance with other medical treatment and regimen due to unspecified reason; Z91.148 Patient's other noncompliance with medication regimen for other reason; Z79.01 Long term (current) use of anticoagulants; Z79.899 Other long term (current) drug therapy; E80.6 Other disorders of bilirubin metabolism; Z82.49 Family history of ischemic heart disease and other diseases of the circulatory system; Z59.00 Homelessness unspecified; I07.1 Rheumatic tricuspid insufficiency; E66.9 Obesity, unspecified; Z68.28 Body mass index [BMI] 28.0-28.9, adult
CPT/HCPCS: 36415; 36600; 71045-TC; 76700-TC; 80048-TC; 80053-TC; 80076-TC; 82803-TC; 82962-TC; 83735-TC; 83880; 84100-TC; 85025-TC; 85378-TC; 87081-TC; 93307-TC; 93970-TC; 93971-TC; 94760-TC; 94762-TC; 94799-TC; 97110-TC; 97116-TC; 97530-TC; 97535-TC; 98960; A4223; G0378; J1650; J1940; J2919; J3490; J7030; J7050; J7060; J7070; Q9967